=== PATIENT | female | born 1945 ===

== ENCOUNTER 2022-03-03 09:27 | Inpatient (IN) ==
--- NOTE | 2022-03-03 09:43 | Emergency Department Note ---
HPI General Chief complaint: Rib Pain Stated complaint: Rib pain Time Seen by Provider: 03/03/22 09:41 Source: EMS Mode of arrival: EMS Limitations: no limitations History of Present Illness HPI Narrative: Narrative: Patient is a 77-year-old female with a history of CKD, hyperlipidemia, and hypertension who presents to the emergency department due to right-sided rib pain. Patient states that she was swabbing for COVID when she became lightheaded. She states that she then fell and hit her right side. She denies loss of consciousness. She denies hitting her head. She denies headache, nausea, and vomiting at this time. She states that she has had runny nose, sore throat, and cough, and it was for this reason that she was taking COVID test. She states that she was positive for COVID. She denies any other concerns at this time. Related Data Home Medications Medication Instructions Recorded Confirmed coQ10 (ubiquinol) 100 mg capsule 100 mg PO QDAY 01/25/16 03/03/22 magnesium oxide 400 mg PO QDAY 01/25/16 03/03/22 B.animalis-B.bifidum-B.infantis-B.longum 1 tab PO QDAY 02/03/16 03/03/22 10 mg-15 mg tablet,delay rel (Probiotic 4X) multivitamin,gp-dynb-ycumwdvi 1 tab PO BID 02/03/16 03/03/22 (Complete Multivitamin tablet) psyllium seed (sugar) oral powder 1 tbsp PO QDAY PRN Diarrhea 02/03/16 03/03/22 (Metamucil (sugar) oral powder) calcium carbonate 500 mg-vitamin 1 tab PO QDAY 09/09/18 03/03/22 D3 10 mcg (400 unit) chewable tablet (Calcium 500 + D) cyanocobalamin (vitamin B-12) See Rx Instructions PO QDAY 09/09/18 03/03/22 docusate sodium 100 mg capsule 100 mg PO QDAY 09/09/18 03/03/22 hydrochlorothiazide 12.5 mg capsule 12.5 mg PO QDAY 09/09/18 03/03/22 pravastatin 40 mg tablet 20 mg PO QHS 09/09/18 03/03/22 nortriptyline 10 mg capsule 10 mg PO QDAY 09/08/19 03/03/22 Astaxanthin- Vit E Hawiian Bioastin 12 mg PO QDAY 09/07/20 03/03/22 ascorbic acid (vitamin C) 250 mg 500 mg PO QDAY 09/07/20 03/03/22 chewable tablet cholecalciferol (vitamin D3) 25 1,000 unit PO QDAY 09/07/20 03/03/22 mcg (1,000 unit) capsule cranberry extract 425 mg capsule 425 mg PO QDAY 09/07/20 03/03/22 pfqozwda-qfmzijtg-wig C 250 2 tab PO QDAY 09/07/20 03/03/22 mg-herbal no.124 8.875 mg chewable tablet (Airborne (ascorbic acid)) Previous Rx's Medication Instructions Recorded atenolol 50 mg tablet 50 mg PO QHS #90 tabs 03/12/18 amlodipine 2.5 mg tablet 2.5 mg PO QDAY #90 tabs 09/14/21 Allergies Allergy/AdvReac Type Severity Reaction Status Date / Time naproxen [From Aleve] Allergy Severe swelling,redness Verified 03/03/22 09:37 of skin rofecoxib [From Vioxx] Allergy Mild Hives Verified 03/04/22 07:46 alendronate sodium AdvReac Intermediate Muscle Pain Verified 03/04/22 07:46 [From Fosamax] Review of Systems ROS ROS Narrative: Narrative: Constitutional: Denies fever or weakness Eyes: Denies eye pain or vision change ENT ED: Reports throat pain and rhinorrhea; Denies hearing loss Cardiovascular: Reports chest pain; Denies dyspnea on exertion, orthopnea or edema Respiratory: Reports cough; Denies shortness of breath Gastrointestinal: Denies abdominal pain, nausea, vomiting, diarrhea, constipation, hematochezia or melena Musculoskeletal: Denies back pain or myalgia Integumentary: Denies rash or lesions Neurological: Reports other (Lightheadedness); Denies headache, weakness, numbness, confusion, abnormal gait or dizziness Endocrine: Denies fatigue or polyuria Hematological/Lymphatic: Denies easy bleeding or easy bruising [facility] Narrative Patient History Narrative: Narrative: Medical/Surgical/Family History All Active Problems (Updated 03/06/22 @ 05:17 by Davon Prince MD) Fracture of rib (Acute) Pneumothorax (Acute) COVID (Acute) Hypocalcemia (Acute) Pneumothorax, right (Acute) Right rib fracture (Acute) Excessive sweating (Chronic) Hypertensive chronic kidney disease with stage 1 through stage 4 chronic kidney disease, or unspecified chronic kidney disease (Chronic) Impaired fasting glucose (Chronic) Mixed hyperlipidemia (Chronic) Flushing (Chronic) Osteopenia (Chronic) Hx of irritable bowel syndrome (Chronic) CKD (chronic kidney disease) stage 2, GFR 60-89 ml/min (Acute) Analgesic nephropathy (Acute) Medical History (Updated 03/06/22 @ 05:17 by Davon Prince MD) Analgesic nephropathy Improving GFR slowly with time with the abstinence of nonsteroidals and well- controlled blood Excessive sweating Flushing Hx of irritable bowel syndrome Hypertensive chronic kidney disease with stage 1 through stage 4 chronic kidney disease, or unspecified chronic kidney disease Suspect this is prior renal dysfunction from nonsteroidal anti- inflammatories, 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, her GFR is back to normal for her age Impaired fasting glucose Mixed hyperlipidemia Osteopenia Surgical History Hx of hysterectomy Family History Mother Brain cancer Sister Hypertension Cancer Social History Smoking Status: Never smoker Alcohol Intake Frequency: holiday/special occasion only Exam Narrative Narrative: Narrative: General Limitations: no limitations General appearance: Present alert and in no apparent distress; Absent anxious, appears intoxicated or sleepy Head Head: Present atraumatic and normocephalic Eye Eye: Present PERRL and EOMI; Absent scleral icterus or nystagmus ENT ENT: Present mucous membranes moist; Absent nasal congestion Neck Neck: Present full ROM; Absent tenderness Chest Chest: Present normal inspection, symmetric chest wall rise and tenderness (Right sided chest) Respiratory Respiratory: Present normal lung sounds bilaterally; Absent respiratory distress, rales/crackles, wheezes, stridor or accessory muscle use Cardiovascular Cardiovascular: Present regular rate, normal rhythm and normal heart sounds Adbominal Abdominal: Present soft and normal bowel sounds; Absent distention or tenderness Extremities Extremities: Present normal inspection and full ROM; Absent tenderness Back Back: Present normal inspection and full ROM; Absent tenderness Neurological Neurological: Present alert and oriented X3 Psychiatric Psychiatric: Present normal affect and normal mood Skin Skin: Present warm (WNL), dry and normal color Course Vital Signs Vital signs: Vital Signs Temperature 97.4 F 03/03/22 09:34 Pulse Rate 75 03/03/22 09:34 Respiratory Rate 18 03/03/22 09:34 Blood Pressure 151/63 03/03/22 09:34 Pulse Oximetry (%) 96 03/03/22 09:34 Temperature 96.1 F L 03/06/22 03:37 Pulse Rate 56 L 03/06/22 03:37 Respiratory Rate 16 03/06/22 03:37 Blood Pressure 126/61 03/06/22 03:37 Pulse Oximetry (%) 93 03/06/22 03:37 Oxygen Delivery Method 03/06/22 03:37 Oxygen Flow Rate (L/min) 2 03/06/22 03:37 MDM MDM Narrative Medical decision making narrative: Narrative: Patient is a 77-year-old female who presents to the emergency department due to fall and new right-sided rib pain. Patient states that she did test positive for COVID. Given her fall with new right-sided rib pain there is concern for potential rib fractures. CT scan demonstrates right seventh through ninth rib fractures with mild displacement of fracture 7 and 8. It also demonstrates small right pneumothorax. Due to these traumatic findings I spoke to Dr. Ortiz who agreed to consult, but requested hospitalist admission. I spoke to Dr. Blanca who agreed to see and evaluate patient for admission. Lab Data Result diagrams: 03/03/22 10:03 Labs: Lab Results 03/03/22 03/03/22 03/03/22 Range/Units 10:03 10:03 10:05 WBC 9.2 (4.5-11.0) K/mcL RBC 4.22 (3.59-5.38) M/mcL Hgb 13.6 (11.2-15.7) g/dL Hct 39.3 (34.1-44.9) % POC Hct 40.0 (36-48) MCV 93.1 (80.0-100.0) fL MCH 32.2 (26.0-34.0) pg MCHC 34.6 (31.0-36.0) g/dL RDW 12.1 (11.5-14.5) % Plt Count 172 (140-440) K/mcL MPV 10.1 (8.8-12.5) fL Immature Gran % (Auto) 0.5 (0.0-0.5) % Neut % (Auto) 83.6 H (38.0-78.0) % Lymph % (Auto) 6.3 L (15.5-49.0) % [place] % (Auto) 9.3 (1.0-12.0) % Eos % (Auto) 0.1 (0.0-7.0) % Baso % (Auto) 0.2 (0.0-2.0) % Lymph # (Auto) 0.58 L (1.50-4.80) K/mcL [place] # (Auto) 0.86 (0.10-0.90) K/mcL Eos # (Auto) 0.01 (0.00-0.70) K/mcL Baso # (Auto) 0.02 (0.00-0.30) K/mcL Immature Gran # 0.05 (0.00-0.05) K/mcl Absolute Neutrophils 7.70 (1.80-8.00) K/mcL POC Sodium 130 L (133-145) POC Potassium 4.0 (3.3-5.1) POC Chloride 94 L (96-108) POC Total CO2 25.0 (22-30) POC BUN 13 (6-20) POC Creatinine 1.0 (0.6-1.2) POC Glucose 147 H (70-105) POC WB Ioniz Calcium 1.09 L (1.16-1.32) POC Troponin I < 0.02 (0.00-0.08) ED POC Tests ED POC Tests: ALYCE - SARS Antigen Positive EKG Data EKG #1: EKG attestation: Yes I reviewed and interpreted this EKG. EKG results narrative: Normal sinus rhythm with a rate of 67, left axis deviation, MS 179, QRS of 111, QTc 441, T wave inversion in lead III, T wave flattening in aVF, and absence of ST elevation or depression. Discharge Plan Patient/Caregiver Discharge Instructions Pt seen by STAVE CUTTING SUPERVISOR/PA only: No Clinical Impression: Fracture of rib, Pneumothorax Patient Disposition: Xfer As Inpt ([facility]) Discharge Date/Time: 03/03/22 14:51
[2022-03-03 10:06] LABS: POC Calcium, Ionized 1.09 (1.16-1.32)
[2022-03-03 10:32] LABS: Basophils # (Auto) 0.02 K/mcL (0.00-0.30); Basophils % (Auto) 0.2 % (0.0-2.0); Eosinophils # (Auto) 0.01 K/mcL (0.00-0.70); Eosinophils % (Auto) 0.1 % (0.0-7.0); Hematocrit 39.3 % (34.1-44.9); Hemoglobin 13.6 g/dL (11.2-15.7); Lymphocytes # (Auto) 0.58 K/mcL (1.50-4.80); Lymphocytes % (Auto) 6.3 % (15.5-49.0); Mean Cell Volume 93.1 fL (80.0-100.0); Mean Corpuscular HGB Conc 34.6 g/dL (31.0-36.0); Mean Platelet Volume 10.1 fL (8.8-12.5); Monocytes # (Auto) 0.86 K/mcL (0.10-0.90); Monocytes % (Auto) 9.3 % (1.0-12.0); Neutrophils % (Auto) 83.6 % (38.0-78.0); Platelet Count 172 K/mcL (140-440); RBC 4.22 M/mcL (3.59-5.38); Red Cell Distribution Width 12.1 % (11.5-14.5); WBC 9.2 K/mcL (4.5-11.0)
[2022-03-03] MEDS ORDERED: KETOROLAC 60 MG/2 ML VIAL IM ONE (10:47)
--- NOTE | 2022-03-03 12:51 | Cat Scan Report ---
History: Fell with right sided rib fractures TECHNIQUE: The chest was imaged without contrast in axial plane at 2.5 mm intervals. Sagittal, coronal and axial MIPS images were created. The radiation exposure was limited using dose reduction technology. FINDINGS: There are acute fractures posterolaterally in the right seventh, eighth and ninth ribs. There is a few millimeter displacement of the fractures in the seventh and eighth ribs with no displacement of the ninth rib. There is a very tiny pneumothorax with a small crescent of air seen adjacent to the right side at the midthoracic spine. No hemothorax is present. There is pleural thickening adjacent to the fractured ribs. Patient has underlying mild to moderate emphysema and mild pulmonary fibrosis. There are couple small granulomata in both lungs. The heart size is normal. There is focal moderate calcification in the left main coronary artery. 3 cm cyst is present in the lower pole of the left kidney. The spine has a moderate kyphotic curvature. There is ankylosis from T2 through T8. No spinal fracture is present. IMPRESSION: Fractured right seventh through ninth ribs. Tiny right-sided pneumothorax Mild to moderate emphysema Dr. Prince was called with the report Interpreted and Authenticated by: Nick Mccormick 03/03/22
--- NOTE | 2022-03-03 14:18 | Internal Med History&Physical ---
HPI History of Present Illness Patient information: Note initiated : 03/03/22 at 2:11 pm Service Date, if different from initiated Date: [] Patient: Eli Welch a 77 y/o F admitted on for Rib pain. Chief Complaint: [fall with right lateral chest wall pain] Chief complaint: fall with right lateral chest wall pain History of present illness: Ms. Welch is a 77 year old F history of CKD, hyperlipidemia, hypertensions, p resenting with mechanical fall with resultant right lateral chest wall pain. There was no previous history of fall. Patient started to experience coughing and chills for the past 90 so she performed a COVID swab yesterday which was negative and she performed another swab today with equivocal result. She did had a medical for after losing her balance in the bathroom earlier today and she landed on her right lateral chest wall. She is now complaining of 5 out of 10, sharp, constant right lateral chest wall exacerbated with coughing or deep breath. She denies any shortness of breath at the moment. CT of the chest showing right 17/9 rib fracture with tiny right-sided pneumothorax. COVID PCR results pending. Admission request was called for management for the rib fractures and tiny pneumothorax. Constitutional Constitutional: Present chills; Absent excessive sweating, fatigue, fever(s) or weakness EENT Eyes: Absent blurry vision, change in vision, loss of vision or other visual disturbances Ears: Absent decreased hearing or tinnitus Nose, mouth and throat: Absent abnormal hearing, dry mouth, headache(s), nasal congestion or sore throat Cardiovascular Cardiovascular: Absent chest pain, chest pain at rest, edema, irregular heart rhythm or palpatations Respiratory Respiratory: Present cough; Absent dyspnea or wheezing Gastrointestinal Gastrointestinal: Absent abdominal pain, constipation, diarrhea, nausea or vomiting Musculoskeletal Musculoskeletal: Absent back pain, deformity, limited range of motion, muscle cramps, muscle weakness or numbness Additional comments: Right lateral chest wall pain Integumentary Integumentary: Absent lesions, rash or wounds Neurological Neurological: Absent focal weakness, headache(s) or numbness Psychiatric Psychiatric: Absent anxiety, depression or hallucinations PFSH PFSH All Active Problems (Updated 03/03/22 @ 14:17 by Kristian Blanca MD) Hypocalcemia (Acute) Pneumothorax, right (Acute) Right rib fracture (Acute) Excessive sweating (Chronic) Hypertensive chronic kidney disease with stage 1 through stage 4 chronic kidney disease, or unspecified chronic kidney disease (Chronic) Impaired fasting glucose (Chronic) Mixed hyperlipidemia (Chronic) Flushing (Chronic) Osteopenia (Chronic) Hx of irritable bowel syndrome (Chronic) CKD (chronic kidney disease) stage 2, GFR 60-89 ml/min (Acute) Analgesic nephropathy (Acute) Medical History (Updated 03/03/22 @ 14:17 by Kristian Blanca MD) Analgesic nephropathy Improving GFR slowly with time with the abstinence of nonsteroidals and well- controlled blood Excessive sweating Flushing Hx of irritable bowel syndrome Hypertensive chronic kidney disease with stage 1 through stage 4 chronic kidney disease, or unspecified chronic kidney disease Suspect this is prior renal dysfunction from nonsteroidal anti- inflammatories, 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, her GFR is back to normal for her age Impaired fasting glucose Mixed hyperlipidemia Osteopenia Surgical History Hx of hysterectomy Family History Mother Brain cancer Sister Hypertension Cancer Social History (Updated 09/08/19 @ 11:42 by Iam Betancourt MD) smoking status: Never smoker alcohol intake frequency: holiday/special occasion only MEDS/ALLERGIES Home Medications and Allergies Home Medications Medication Instructions Recorded Confirmed Type coQ10 (ubiquinol) 100 mg capsule 100 mg PO QDAY 01/25/16 09/14/21 History magnesium oxide 400 mg PO QDAY 01/25/16 09/14/21 History B.animalis-B.bifidum-B.infantis-B.longum mg PO QDAY 02/03/16 09/14/21 History 10 mg-15 mg tablet,delay rel (Probiotic 4X) multivitamin,nq-fcye-hkqlujix 1 tab PO QDAY 02/03/16 09/14/21 History (Complete Multivitamin tablet) psyllium seed (sugar) oral powder 1 tbsp PO QDAY PRN 02/03/16 09/14/21 History (Metamucil (sugar) oral powder) atenolol 50 mg tablet 50 mg PO QHS #90 tabs 03/12/18 09/14/21 Rx calcium carbonate 500 mg-vitamin 1 tab PO QDAY 09/09/18 09/14/21 History D3 10 mcg (400 unit) chewable tablet (Calcium 500 + D) cyanocobalamin (vitamin B-12) See Rx Instructions PO QDAY 09/09/18 09/14/21 History docusate sodium 100 mg capsule 100 mg PO QDAY 09/09/18 09/14/21 History hydrochlorothiazide 12.5 mg capsule 12.5 mg PO QDAY 09/09/18 09/14/21 History pravastatin 40 mg tablet 20 mg PO QHS 09/09/18 09/14/21 History nortriptyline 10 mg capsule 10 mg PO QDAY 09/08/19 09/14/21 History Astaxanthin- Vit E Hawiian Bioastin 12 mg PO QDAY 09/07/20 09/14/21 History ascorbic acid (vitamin C) 250 mg 500 mg PO QDAY 09/07/20 09/14/21 History chewable tablet cholecalciferol (vitamin D3) 25 1,000 unit PO QDAY 09/07/20 09/14/21 History mcg (1,000 unit) capsule cranberry extract 425 mg capsule 425 mg PO QDAY 09/07/20 09/14/21 History znpnuwls-mgwgbzjs-rkg C 250 2 tab PO QDAY 09/07/20 09/14/21 History mg-herbal no.124 8.875 mg chewable tablet (Airborne (ascorbic acid)) amlodipine 2.5 mg tablet 2.5 mg PO QDAY #90 tabs 09/14/21 09/14/21 Rx Allergies Allergy/AdvReac Type Severity Reaction Status Date / Time naproxen [From Aleve] Allergy Severe swelling,redness Verified 03/03/22 09:37 of skin rofecoxib [From Vioxx] Allergy Intermediate Hives Verified 03/03/22 09:37 alendronate sodium AdvReac Severe Muscle Pain Verified 03/03/22 09:37 [From Fosamax] EXAM Constitutional Vitals: Temp Pulse Resp BP Pulse Ox 36.3 C 63 21 137/76 97 03/03/22 09:34 03/03/22 14:08 03/03/22 14:08 03/03/22 14:01 03/03/22 14:08 General appearance: cooperative and no acute distress Head Head exam: Present atraumatic and normocephalic Eye Eye exam: Present EOMI and PERRL ENT ENT exam: Present mucous membranes moist, normal exam and normal external ear exam Neck Neck exam: Present normal inspection; Absent lymphadenopathy, tenderness or thyromegaly Respiratory Respiratory exam: Present chest wall tenderness; Absent accessory muscle use, respiratory distress or wheezes Cardiovascular Cardiovascular exam: Present normal rate and rhythm; Absent JVD GI/Abdominal GI/Abdominal exam: Present normal bowel sounds and soft; Absent organomegaly or tenderness Extremities Exam Extremities exam: Present full ROM, normal capillary refill and normal inspection; Absent tenderness Neurological Exam Neurological exam: Present alert, CN II-XII intact and oriented X3; Absent motor sensory deficit Psychiatric Psychiatric exam: Present normal affect and normal mood; Absent anxious or depressed Skin Skin exam: Present dry and intact DATA Data Completed and Pending Labs: Labs from last 24 hours 03/03/22 03/03/22 03/03/22 10:05 10:03 10:03 WBC 9.2 RBC 4.22 Hgb 13.6 Hct 39.3 POC Hct 40.0 MCV 93.1 MCH 32.2 MCHC 34.6 RDW 12.1 Plt Count 172 MPV 10.1 Immature Gran % (Auto) 0.5 Neut % (Auto) 83.6 H Lymph % (Auto) 6.3 L [place] % (Auto) 9.3 Eos % (Auto) 0.1 Baso % (Auto) 0.2 Lymph # (Auto) 0.58 L [place] # (Auto) 0.86 Eos # (Auto) 0.01 Baso # (Auto) 0.02 Immature Gran # 0.05 Absolute Neutrophils 7.70 POC Sodium 130 L POC Potassium 4.0 POC Chloride 94 L POC Total CO2 25.0 POC BUN 13 POC Creatinine 1.0 POC Glucose 147 H POC WB Ioniz Calcium 1.09 L POC Troponin I < 0.02 A/P Assessment and plan (1) CKD (chronic kidney disease) stage 2, GFR 60-89 ml/min: Status: Acute (2) Mixed hyperlipidemia: Status: Chronic (3) Hypertensive chronic kidney disease with stage 1 through stage 4 chronic kidney disease, or unspecified chronic kidney disease: Status: Chronic Comment: Suspect this is prior renal dysfunction from nonsteroidal anti-inflammatories, 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 Right 7-9th ribs fracture with associated tiny right pneumothorax: Inpatient med surg General surgeon Dr. Ortiz consulted, recs. appreciated. No current plan for chest tube placement Repeat CXR 2 view tomorrow to trend Tylenol PRN mild pain Oxycodone PRN moderate pain Dilaudid IV PRN severe pain Incentive spirometry while awake Supplemental oxygen therapy Physical therapy evaluation and treatment 2. Hypertension associated with chronic kidney disease II: Avoid nephrotoxic agents Amlodipine Atenolol Hydrochlorothiazide 3. Mixed dyslipidemia: Continue statin therapy 4. Hypocalcemia: Calcium oral replacement GI ppx: not currently indicated DVT ppx: Lovenox Code status: Full Prognosis: guarded Disposition: inpatient med surg; PT Time Spent With Patient Time: Total time spent is greater than 50% in coordination of care (as documented) at patient's floor/unit and/or counseling patient: Total time spent with greater than 50% in coordination of care (as documented) at patient's floor/unit and/or counseling patient:: 50 - 70 minutes
--- NOTE | 2022-03-03 14:25 | General Surgery Consult Note ---
HPI Date of Consult Primary Care Provider: Shira Lee Consult Narrative cc:: CC: PFSH PFSH All Active Problems (Updated 03/03/22 @ 14:17 by Kristian Blanca MD) Hypocalcemia (Acute) Pneumothorax, right (Acute) Right rib fracture (Acute) Excessive sweating (Chronic) Hypertensive chronic kidney disease with stage 1 through stage 4 chronic kidney disease, or unspecified chronic kidney disease (Chronic) Impaired fasting glucose (Chronic) Mixed hyperlipidemia (Chronic) Flushing (Chronic) Osteopenia (Chronic) Hx of irritable bowel syndrome (Chronic) CKD (chronic kidney disease) stage 2, GFR 60-89 ml/min (Acute) Analgesic nephropathy (Acute) Medical History (Updated 03/03/22 @ 14:17 by Kristian Blanca MD) Analgesic nephropathy Improving GFR slowly with time with the abstinence of nonsteroidals and well- controlled blood Excessive sweating Flushing Hx of irritable bowel syndrome Hypertensive chronic kidney disease with stage 1 through stage 4 chronic kidney disease, or unspecified chronic kidney disease Suspect this is prior renal dysfunction from nonsteroidal anti- inflammatories, 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, her GFR is back to normal for her age Impaired fasting glucose Mixed hyperlipidemia Osteopenia Surgical History Hx of hysterectomy Family History Mother Brain cancer Sister Hypertension Cancer Social History (Updated 09/08/19 @ 11:42 by Ima Betancourt MD) smoking status: Never smoker alcohol intake frequency: holiday/special occasion only MEDS/ALLERGIES Home Medications and Allergies Home Medications Medication Instructions Recorded Confirmed Type coQ10 (ubiquinol) 100 mg capsule 100 mg PO QDAY 01/25/16 09/14/21 History magnesium oxide 400 mg PO QDAY 01/25/16 09/14/21 History B.animalis-B.bifidum-B.infantis-B.longum mg PO QDAY 02/03/16 09/14/21 History 10 mg-15 mg tablet,delay rel (Probiotic 4X) multivitamin,vk-nbsq-axonqqzk 1 tab PO QDAY 02/03/16 09/14/21 History (Complete Multivitamin tablet) psyllium seed (sugar) oral powder 1 tbsp PO QDAY PRN 02/03/16 09/14/21 History (Metamucil (sugar) oral powder) atenolol 50 mg tablet 50 mg PO QHS #90 tabs 03/12/18 09/14/21 Rx calcium carbonate 500 mg-vitamin 1 tab PO QDAY 09/09/18 09/14/21 History D3 10 mcg (400 unit) chewable tablet (Calcium 500 + D) cyanocobalamin (vitamin B-12) See Rx Instructions PO QDAY 09/09/18 09/14/21 History docusate sodium 100 mg capsule 100 mg PO QDAY 09/09/18 09/14/21 History hydrochlorothiazide 12.5 mg capsule 12.5 mg PO QDAY 09/09/18 09/14/21 History pravastatin 40 mg tablet 20 mg PO QHS 09/09/18 09/14/21 History nortriptyline 10 mg capsule 10 mg PO QDAY 09/08/19 09/14/21 History Astaxanthin- Vit E Hawiian Bioastin 12 mg PO QDAY 09/07/20 09/14/21 History ascorbic acid (vitamin C) 250 mg 500 mg PO QDAY 09/07/20 09/14/21 History chewable tablet cholecalciferol (vitamin D3) 25 1,000 unit PO QDAY 09/07/20 09/14/21 History mcg (1,000 unit) capsule cranberry extract 425 mg capsule 425 mg PO QDAY 09/07/20 09/14/21 History sfiusvqy-bhsqvjgy-wot C 250 2 tab PO QDAY 09/07/20 09/14/21 History mg-herbal no.124 8.875 mg chewable tablet (Airborne (ascorbic acid)) amlodipine 2.5 mg tablet 2.5 mg PO QDAY #90 tabs 09/14/21 09/14/21 Rx Allergies Allergy/AdvReac Type Severity Reaction Status Date / Time naproxen [From Aleve] Allergy Severe swelling,redness Verified 03/03/22 09:37 of skin rofecoxib [From Vioxx] Allergy Intermediate Hives Verified 03/03/22 09:37 alendronate sodium AdvReac Severe Muscle Pain Verified 03/03/22 09:37 [From Fosamax] Physical Examination Vital Signs Vital signs: Temp Pulse Resp BP Pulse Ox 97.4 F 64 18 147/61 97 03/03/22 09:34 03/03/22 14:22 03/03/22 14:22 03/03/22 14:16 03/03/22 14:22 Results Labs Result diagrams: 03/03/22 10:03 Labs: Abnormal lab results 03/03/22 03/03/22 Range/Units 10:03 10:03 Neut % (Auto) 83.6 H (38.0-78.0) % Lymph % (Auto) 6.3 L (15.5-49.0) % Lymph # (Auto) 0.58 L (1.50-4.80) K/mcL POC Sodium 130 L (133-145) POC Chloride 94 L (96-108) POC Glucose 147 H (70-105) POC WB Ioniz Calcium 1.09 L (1.16-1.32) All other labs normal. A/P Time Spent With Patient Time: Total time spent is greater than 50% in coordination of care (as documented) at patient's floor/unit and/or counseling patient:
[2022-03-03] MEDS ORDERED: IPRATROPIUM/ALBUTEROL 3 ML AMPUL.NEB NEB PRN (15:00)
--- NOTE | 2022-03-03 15:04 | XRay Report ---
HISTORY: Fell, right-sided chest pain There are vertically oriented fractures posterolaterally in the right seventh and eighth ribs. There is mild separation at the fracture sites. No pneumothorax or pleural effusion are present. There is mild interstitial fibrosis. CT scan shows the patient has mild emphysema. There is no pulmonary contusion IMPRESSION: Fractured right seventh and eighth ribs Interpreted and Authenticated by: Nick Mccormick 03/03/22
[2022-03-03] MEDS: oxyCODONE HCL 5 MG TABLET PO PRN ×2 (16:37→20:36)
[2022-03-03] MEDS: ONDANSETRON 4 MG/2 ML VIAL IV PRN (20:37)
[2022-03-03] MEDS: HYDROmorphone 0.5 MG/0.5 ML SYRINGE IV PRN (20:38)
[2022-03-03] MEDS: 0.9 % SODIUM CHLORIDE 10 ML SYRINGE IV SCH (20:38)
[2022-03-03] MEDS ORDERED: traZODone HCL 50 MG TABLET PO PRN (21:00)
[2022-03-03] MEDS: DOCUSATE SODIUM 100 MG CAPSULE PO SCH (21:01)
[2022-03-03] MEDS: SENNOSIDES 1 TABLET PO SCH (23:59)
[2022-03-04] MEDS: ACETAMINOPHEN 325 MG TABLET PO PRN ×2 (01:47→19:24)
[2022-03-04] MEDS: oxyCODONE HCL 5 MG TABLET PO PRN ×4 (01:48→19:22)
[2022-03-04] MEDS: 0.9 % SODIUM CHLORIDE 10 ML SYRINGE IV SCH ×3 (05:38→22:00)
[2022-03-04] MEDS ORDERED: PSYLLIUM HUSK 5.8 GM PACKET PO PRN (07:46)
[2022-03-04] MEDS: ENOXAPARIN 40 MG/0.4 ML SYRINGE SQ SCH (08:03)
[2022-03-04] MEDS: ASCORBIC ACID 500 MG TABLET PO SCH (08:04)
[2022-03-04] MEDS: CALCIUM CARBONATE 500 MG TAB.CHEW CHEWED SCH (08:04)
[2022-03-04] MEDS: CYANOCOBALAMIN (VITAMIN B-12) 500 MCG TABLET PO SCH (08:04)
[2022-03-04] MEDS: amLODIPine 5 MG TABLET PO SCH (08:04)
[2022-03-04] MEDS: DOCUSATE SODIUM 100 MG CAPSULE PO SCH ×2 (08:05→20:38)
[2022-03-04] MEDS: LACTOBACILLUS 1 CAPSULE PO SCH (08:06)
[2022-03-04] MEDS: HYDROCHLOROTHIAZIDE 12.5 MG CAPSULE PO SCH (08:06)
[2022-03-04] MEDS: MAGNESIUM OXIDE 400 MG TABLET PO SCH (08:06)
[2022-03-04] MEDS: CALCIUM W/VIT D3 500 MG TABLET PO SCH (08:07)
[2022-03-04] MEDS: NORTRIPTYLINE 10 MG CAPSULE PO SCH (08:07)
[2022-03-04] MEDS: VITAMIN D3 25 MCG TABLET PO SCH (08:07)
[2022-03-04] MEDS: MULTIVIT,THER IRON,CA,FA & MIN 1 TABLET PO SCH (08:07)
[2022-03-04] MEDS: HYDROmorphone 0.5 MG/0.5 ML SYRINGE IV PRN ×3 (08:08→21:06)
[2022-03-04] MEDS ORDERED: DOCUSATE SODIUM 100 MG CAPSULE PO SCH (09:00)
[2022-03-04] MEDS ORDERED: COQ10 100 MG PO SCH (09:00)
[2022-03-04] MEDS ORDERED: [UNRECOGNIZED DRUG - MIXTURE] PO SCH (09:00)
[2022-03-04] MEDS ORDERED: [UNRECOGNIZED DRUG - REMARK] PO SCH (09:00)
[2022-03-04] MEDS ORDERED: CRANBERRY EXTRACT 425 MG PO SCH (09:00)
--- NOTE | 2022-03-04 09:01 | XRay Report ---
HISTORY: Right-sided rib fracture, follow-up right pneumothorax FINDINGS: There is no pneumothorax or pleural effusion. Fractures are again seen posterolaterally in the right seventh eighth and ninth ribs. Patient has mild emphysema and minor interstitial fibrosis. The heart size is normal. IMPRESSION: No pneumothorax Interpreted and Authenticated by: Nick Mccormick 03/04/22
--- NOTE | 2022-03-04 14:04 | Internal Med Progress Note ---
SUBJECTIVE Subjective Patient information: Note initiated : 03/04/22 at 2:00 pm Service Date, if different from initiated Date: [] Patient: Eli Welch a 77 y/o F admitted on 03/03/22 for Rib pain. Chief Complaint: [] Interval history: Ms. Welch is a 77 year old F history of CKD, hyperlipidemia, hypertensions, presenting with mechanical fall with resultant right lateral chest wall pain. There was no previous history of fall. Patient started to experience coughing and chills for the past 90 so she performed a COVID swab yesterday which was negative and she performed another swab today with equivocal result. She did had a medical for after losing her balance in the bathroom earlier today and she landed on her right lateral chest wall. She is now complaining of 5 out of 10, sharp, constant right lateral chest wall exacerbated with coughing or deep breath. She denies any shortness of breath at the moment. CT of the chest showing right 17/9 rib fracture with tiny right-sided pneumothorax. COVID PCR results pending. Admission request was called for management for the rib fractures and tiny pneumothorax. 03/04: Patient was on 3 L/min of oxygen overnight, currently she is on room air. She tested positive for COVID-pneumonia. Chest x-ray this morning showing resolution of pneumothorax. She stated that when she is at rest, she does not have any right-sided chest pain. When she tried to move, she will have 6 out of 10 sharp constant right-sided chest wall pain. She denies any shortness of breath or wheezing; she is complaining of mild nonproductive cough. She denies any more fever, chills, or diaphoresis. Continue narcotics as needed for pain control for her right seventh and ninth rib fractures. Supplemental oxygen therapy as needed. No COVID-specific treatments because patient is not oxygen dependent at the moment. Pending physical therapy evaluation and treatment for placement planning. Constitutional Vitals: Vital Signs Temp Pulse Resp BP Pulse Ox O2 Del Method O2 Flow Rate 36.6 C 63 14 118/65 91 3 03/04/22 12:00 03/04/22 12:00 03/04/22 12:00 03/04/22 12:00 03/04/22 12:00 03/04/22 12:00 03/04/22 07:19 Period Temp Pulse Resp BP Sys/Khalil Pulse Ox O2 Del Method O2 Flow Rate Last 24 Hr 36.0 C-36.8 C 62-72 14-21 118-147/59-76 89-99 Nasal Cannula- Room Air 3-3 Intake and Output 03/04/22 03/04/22 03/04/22 03:59 11:59 19:59 Intake Total 400 960 Output Total 250 550 Balance -250 400 410 Weight 90.356 kg 90.356 kg Patient Weight 03/05/22 03:59 Weight 90.356 kg Intake & Output: Intake & Output 03/04/22 03/04/22 03/04/22 03:59 11:59 19:59 Intake Total 400 960 Output Total 250 550 Balance -250 400 410 Weight 90.356 kg 90.356 kg Intake: Oral 400 960 Output: Void Amount 250 550 Other: Meal Lunch Percent of Meal Consumed 100% Feeding Ability Independent Urine Appearance Clear Clear Urine Color Bright Yellow Yellow Urine Odor Normal Head Head exam: Present atraumatic and normal inspection Eye Eye exam: Present normal appearance ENT ENT exam: Present mucous membranes moist, normal exam and normal external ear exam Neck Neck exam: Present normal inspection Respiratory Respiratory exam: Present normal respiratory exam and chest wall tenderness Cardiovascular Cardiovascular exam: Present normal rate and rhythm GI/Abdominal GI/Abdominal exam: Present normal bowel sounds Back Exam Back exam: Present normal inspection Neurological Exam Neurological exam: Present alert and oriented X3 Skin Skin exam: Present intact and warm OBJ DATA Labs CBC & Chem 7: 03/03/22 10:03 Labs: Abnormal Lab Results 03/03/22 03/03/22 10:03 10:03 Neut % (Auto) 83.6 H Lymph % (Auto) 6.3 L Lymph # (Auto) 0.58 L POC Sodium 130 L POC Chloride 94 L POC Glucose 147 H POC WB Ioniz Calcium 1.09 L Meds: Medications Acetaminophen (Acetaminophen 325 Mg Tablet) 650 mg PO Q6HP PRN; Protocol PRN Reason: Per Pain Protocol/Fever > 101 Last Admin: 03/04/22 01:47 Dose: 650 mg Amlodipine Besylate (Amlodipine 5 Mg Tablet) 2.5 mg PO DAILY [facility] Last Admin: 03/04/22 08:04 Dose: 2.5 mg Ascorbic Acid (Ascorbic Acid 500 Mg Tablet) 500 mg PO DAILY [facility] Last Admin: 03/04/22 08:04 Dose: 500 mg Atenolol (Atenolol 50 Mg Tablet) 50 mg PO QHS [facility] Calcium Carbonate/Glycine (Calcium Carbonate 500 Mg Tab.Chew) 500 mg CHEWED DAILY [facility] Last Admin: 03/04/22 08:04 Dose: 500 mg Calcium/Vitamin D (Calcium W/Vit D3 500 Mg Tablet) 500 mg PO DAILY [facility] Last Admin: 03/04/22 08:07 Dose: 500 mg Cyanocobalamin (Cyanocobalamin (Vitamin B-12) 500 Mcg Tablet) 1,000 mcg PO DAILY [facility] Last Admin: 03/04/22 08:04 Dose: 1,000 mcg Docusate Sodium (Docusate Sodium 100 Mg Capsule) 100 mg PO BID [facility] Last Admin: 03/04/22 08:05 Dose: 100 mg Enoxaparin Sodium (Enoxaparin 40 Mg/0.4 Ml Syringe) 40 mg SQ DAILY [facility] Last Admin: 03/04/22 08:03 Dose: 40 mg Hydrochlorothiazide (Hydrochlorothiazide 12.5 Mg Capsule) 12.5 mg PO QDAY [facility] Last Admin: 03/04/22 08:06 Dose: 12.5 mg Hydromorphone HCl (Hydromorphone 0.5 Mg/0.5 Ml Syringe) 0.5 mg IV Q2HP PRN; Protocol PRN Reason: Per Pain Protocol Last Admin: 03/04/22 08:08 Dose: 0.5 mg Iron Carb/Multivit/[place]/Folic Acid (Multivit,Ther Iron,Ca,Fa & Min 1 Tablet) 1 tab PO DAILY [facility] Last Admin: 03/04/22 08:07 Dose: 1 tab Lactobacillus Rhamnosus (Lactobacillus 1 Capsule) 1 cap PO QDAY [facility] Last Admin: 03/04/22 08:06 Dose: 1 cap Magnesium Oxide (Magnesium Oxide 400 Mg Tablet) 400 mg PO DAILY [facility] Last Admin: 03/04/22 08:06 Dose: 400 mg Nortriptyline HCl (Nortriptyline 10 Mg Capsule) 10 mg PO QDAY [facility] Last Admin: 03/04/22 08:07 Dose: 10 mg Ondansetron HCl (Ondansetron 4 Mg/2 Ml Vial) 4 mg IV Q6HP PRN PRN Reason: Nausea And Vomiting Last Admin: 03/03/22 20:37 Dose: 4 mg Oxycodone HCl (Oxycodone Hcl 5 Mg Tablet) 5 mg PO Q4HP PRN; Protocol PRN Reason: Per Pain Protocol Last Admin: 03/04/22 12:53 Dose: 5 mg Psyllium Hydrophilic Mucilloid (Psyllium Husk 5.8 Gm Packet) 6 gm PO DAILYP PRN PRN Reason: Diarrhea Senna (Sennosides 1 Tablet) 2 tab PO HS [facility] Last Admin: 03/03/22 23:59 Dose: Not Given Simvastatin (Simvastatin 10 Mg Tablet) 10 mg PO HS [facility] Sodium Chloride (0.9 % Sodium Chloride 10 Ml Syringe) 10 ml IV Q8 [facility] Last Admin: 03/04/22 12:53 Dose: 10 ml Trazodone HCl (Trazodone Hcl 50 Mg Tablet) 25 mg PO HSP PRN PRN Reason: Insomnia Vitamin D (Vitamin D3 25 Mcg Tablet) 25 mcg PO DAILY [facility] Last Admin: 03/04/22 08:07 Dose: 25 mcg A/P Assessment and plan (1) CKD (chronic kidney disease) stage 2, GFR 60-89 ml/min: Status: Acute (2) Mixed hyperlipidemia: Status: Chronic (3) Hypertensive chronic kidney disease with stage 1 through stage 4 chronic kidney disease, or unspecified chronic kidney disease: Status: Chronic Comment: Suspect this is prior renal dysfunction from nonsteroidal anti-inflammatories, 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 Right 7-9th ribs fracture with associated tiny right pneumothorax: Inpatient med surg General surgeon Dr. Ortiz consulted, recs. appreciated. No current plan for chest tube placement Repeat CXR 2 view showing resolution of the pneumothorax. Tylenol PRN mild pain Oxycodone PRN moderate pain Dilaudid IV PRN severe pain Incentive spirometry while awake Supplemental oxygen therapy Physical therapy evaluation and treatment 2. Hypertension associated with chronic kidney disease II: Currently normotensive Avoid nephrotoxic agents Amlodipine Atenolol Hydrochlorothiazide 3. Mixed dyslipidemia: Continue statin therapy 4. Hypocalcemia: Calcium oral replacement GI ppx: not currently indicated DVT ppx: Lovenox Code status: Full Prognosis: Stable Disposition: inpatient med surg; PT Time Spent With Patient Time: Total time spent is greater than 50% in coordination of care (as documented) at patient's floor/unit and/or counseling patient: Total time spent with greater than 50% in coordination of care (as documented) at patient's floor/unit and/or counseling patient:: 25 - 35 minutes QUALITY VTE Deep Vein Thrombosis/Pulmonary Embolism Present on Admission: No
--- NOTE | 2022-03-04 14:05 | Internal Med Progress Note ---
SUBJECTIVE Subjective Patient information: Note initiated : 03/04/22 at 2:05 pm Service Date, if different from initiated Date: [] Patient: Eli Welch a 77 y/o F admitted on 03/03/22 for Rib pain. Chief Complaint: [] Interval history: Ms. Welch is a 77 year old F history of CKD, hyperlipidemia, hypertensions, presenting with mechanical fall with resultant right lateral chest wall pain. There was no previous history of fall. Patient started to experience coughing and chills for the past 90 so she performed a COVID swab yesterday which was negative and she performed another swab today with equivocal result. She did had a medical for after losing her balance in the bathroom earlier today and she landed on her right lateral chest wall. She is now complaining of 5 out of 10, sharp, constant right lateral chest wall exacerbated with coughing or deep breath. She denies any shortness of breath at the moment. CT of the chest showing right 17/9 rib fracture with tiny right-sided pneumothorax. COVID PCR results pending. Admission request was called for management for the rib fractures and tiny pneumothorax. 03/04: Patient was on 3 L/min of oxygen overnight, currently she is on room air. She tested positive for COVID-pneumonia. Chest x-ray this morning showing resolution of pneumothorax. She stated that when she is at rest, she does not have any right-sided chest pain. When she tried to move, she will have 6 out of 10 sharp constant right-sided chest wall pain. She denies any shortness of breath or wheezing; she is complaining of mild nonproductive cough. She denies any more fever, chills, or diaphoresis. Continue narcotics as needed for pain control for her right seventh and ninth rib fractures. Supplemental oxygen therapy as needed. No COVID-specific treatments because patient is not oxygen dependent at the moment. Pending physical therapy evaluation and treatment for placement planning. Constitutional Vitals: Vital Signs Temp Pulse Resp BP Pulse Ox O2 Del Method O2 Flow Rate 36.6 C 63 14 118/65 91 3 03/04/22 12:00 03/04/22 12:00 03/04/22 12:00 03/04/22 12:00 03/04/22 12:00 03/04/22 12:00 03/04/22 07:19 Period Temp Pulse Resp BP Sys/Khalil Pulse Ox O2 Del Method O2 Flow Rate Last 24 Hr 36.0 C-36.8 C 62-72 14-21 118-147/59-76 89-99 Nasal Cannula- Room Air 3-3 Intake and Output 03/04/22 03/04/22 03/04/22 03:59 11:59 19:59 Intake Total 400 960 Output Total 250 550 Balance -250 400 410 Weight 90.356 kg 90.356 kg Patient Weight 03/05/22 03:59 Weight 90.356 kg Intake & Output: Intake & Output 03/04/22 03/04/22 03/04/22 03:59 11:59 19:59 Intake Total 400 960 Output Total 250 550 Balance -250 400 410 Weight 90.356 kg 90.356 kg Intake: Oral 400 960 Output: Void Amount 250 550 Other: Meal Lunch Percent of Meal Consumed 100% Feeding Ability Independent Urine Appearance Clear Clear Urine Color Bright Yellow Yellow Urine Odor Normal Head Head exam: Present atraumatic and normal inspection Eye Eye exam: Present normal appearance ENT ENT exam: Present mucous membranes moist, normal exam and normal external ear exam Neck Neck exam: Present normal inspection Respiratory Respiratory exam: Present normal respiratory exam and chest wall tenderness Cardiovascular Cardiovascular exam: Present normal rate and rhythm GI/Abdominal GI/Abdominal exam: Present normal bowel sounds Back Exam Back exam: Present normal inspection Neurological Exam Neurological exam: Present alert and oriented X3 Skin Skin exam: Present intact and warm OBJ DATA Labs CBC & Chem 7: 03/03/22 10:03 Labs: Abnormal Lab Results 03/03/22 03/03/22 10:03 10:03 Neut % (Auto) 83.6 H Lymph % (Auto) 6.3 L Lymph # (Auto) 0.58 L POC Sodium 130 L POC Chloride 94 L POC Glucose 147 H POC WB Ioniz Calcium 1.09 L Meds: Medications Acetaminophen (Acetaminophen 325 Mg Tablet) 650 mg PO Q6HP PRN; Protocol PRN Reason: Per Pain Protocol/Fever > 101 Last Admin: 03/04/22 01:47 Dose: 650 mg Amlodipine Besylate (Amlodipine 5 Mg Tablet) 2.5 mg PO DAILY [facility] Last Admin: 03/04/22 08:04 Dose: 2.5 mg Ascorbic Acid (Ascorbic Acid 500 Mg Tablet) 500 mg PO DAILY [facility] Last Admin: 03/04/22 08:04 Dose: 500 mg Atenolol (Atenolol 50 Mg Tablet) 50 mg PO QHS [facility] Calcium Carbonate/Glycine (Calcium Carbonate 500 Mg Tab.Chew) 500 mg CHEWED DAILY [facility] Last Admin: 03/04/22 08:04 Dose: 500 mg Calcium/Vitamin D (Calcium W/Vit D3 500 Mg Tablet) 500 mg PO DAILY [facility] Last Admin: 03/04/22 08:07 Dose: 500 mg Cyanocobalamin (Cyanocobalamin (Vitamin B-12) 500 Mcg Tablet) 1,000 mcg PO DAILY [facility] Last Admin: 03/04/22 08:04 Dose: 1,000 mcg Docusate Sodium (Docusate Sodium 100 Mg Capsule) 100 mg PO BID [facility] Last Admin: 03/04/22 08:05 Dose: 100 mg Enoxaparin Sodium (Enoxaparin 40 Mg/0.4 Ml Syringe) 40 mg SQ DAILY [facility] Last Admin: 03/04/22 08:03 Dose: 40 mg Hydrochlorothiazide (Hydrochlorothiazide 12.5 Mg Capsule) 12.5 mg PO QDAY [facility] Last Admin: 03/04/22 08:06 Dose: 12.5 mg Hydromorphone HCl (Hydromorphone 0.5 Mg/0.5 Ml Syringe) 0.5 mg IV Q2HP PRN; Protocol PRN Reason: Per Pain Protocol Last Admin: 03/04/22 08:08 Dose: 0.5 mg Iron Carb/Multivit/[place]/Folic Acid (Multivit,Ther Iron,Ca,Fa & Min 1 Tablet) 1 tab PO DAILY [facility] Last Admin: 03/04/22 08:07 Dose: 1 tab Lactobacillus Rhamnosus (Lactobacillus 1 Capsule) 1 cap PO QDAY [facility] Last Admin: 03/04/22 08:06 Dose: 1 cap Magnesium Oxide (Magnesium Oxide 400 Mg Tablet) 400 mg PO DAILY [facility] Last Admin: 03/04/22 08:06 Dose: 400 mg Nortriptyline HCl (Nortriptyline 10 Mg Capsule) 10 mg PO QDAY [facility] Last Admin: 03/04/22 08:07 Dose: 10 mg Ondansetron HCl (Ondansetron 4 Mg/2 Ml Vial) 4 mg IV Q6HP PRN PRN Reason: Nausea And Vomiting Last Admin: 03/03/22 20:37 Dose: 4 mg Oxycodone HCl (Oxycodone Hcl 5 Mg Tablet) 5 mg PO Q4HP PRN; Protocol PRN Reason: Per Pain Protocol Last Admin: 03/04/22 12:53 Dose: 5 mg Psyllium Hydrophilic Mucilloid (Psyllium Husk 5.8 Gm Packet) 6 gm PO DAILYP PRN PRN Reason: Diarrhea Senna (Sennosides 1 Tablet) 2 tab PO HS [facility] Last Admin: 03/03/22 23:59 Dose: Not Given Simvastatin (Simvastatin 10 Mg Tablet) 10 mg PO HS [facility] Sodium Chloride (0.9 % Sodium Chloride 10 Ml Syringe) 10 ml IV Q8 [facility] Last Admin: 03/04/22 12:53 Dose: 10 ml Trazodone HCl (Trazodone Hcl 50 Mg Tablet) 25 mg PO HSP PRN PRN Reason: Insomnia Vitamin D (Vitamin D3 25 Mcg Tablet) 25 mcg PO DAILY [facility] Last Admin: 03/04/22 08:07 Dose: 25 mcg A/P Assessment and plan (1) CKD (chronic kidney disease) stage 2, GFR 60-89 ml/min: Status: Acute (2) Mixed hyperlipidemia: Status: Chronic (3) Hypertensive chronic kidney disease with stage 1 through stage 4 chronic kidney disease, or unspecified chronic kidney disease: Status: Chronic Comment: Suspect this is prior renal dysfunction from nonsteroidal anti-inflammatories, 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 Right 7-9th ribs fracture with associated tiny right pneumothorax: Inpatient med surg General surgeon Dr. Ortiz consulted, recs. appreciated. No current plan for chest tube placement Repeat CXR 2 view showing resolution of the pneumothorax. Tylenol PRN mild pain Oxycodone PRN moderate pain Dilaudid IV PRN severe pain Incentive spirometry while awake Supplemental oxygen therapy Physical therapy evaluation and treatment 2. Hypertension associated with chronic kidney disease II: Currently normotensive Avoid nephrotoxic agents Amlodipine Atenolol Hydrochlorothiazide 3. Mixed dyslipidemia: Continue statin therapy 4. Hypocalcemia: Calcium oral replacement GI ppx: not currently indicated DVT ppx: Lovenox Code status: DNR Prognosis: Stable Disposition: inpatient med surg; PT Time Spent With Patient Time: Total time spent is greater than 50% in coordination of care (as documented) at patient's floor/unit and/or counseling patient: Total time spent with greater than 50% in coordination of care (as documented) at patient's floor/unit and/or counseling patient:: 25 - 35 minutes QUALITY VTE Deep Vein Thrombosis/Pulmonary Embolism Present on Admission: No
[2022-03-04] MEDS: ONDANSETRON 4 MG/2 ML VIAL IV PRN ×2 (19:22→21:00)
[2022-03-04] MEDS: SIMVASTATIN 10 MG TABLET PO SCH (20:37)
[2022-03-04] MEDS: ATENOLOL 50 MG TABLET PO SCH (20:37)
[2022-03-04] MEDS: SENNOSIDES 1 TABLET PO SCH (20:37)
[2022-03-05] MEDS: ACETAMINOPHEN 325 MG TABLET PO PRN (00:55)
[2022-03-05] MEDS: oxyCODONE HCL 5 MG TABLET PO PRN ×5 (00:56→23:37)
[2022-03-05] MEDS: 0.9 % SODIUM CHLORIDE 10 ML SYRINGE IV SCH ×3 (04:21→21:13)
[2022-03-05] MEDS: LACTOBACILLUS 1 CAPSULE PO SCH (08:18)
[2022-03-05] MEDS: HYDROCHLOROTHIAZIDE 12.5 MG CAPSULE PO SCH (08:19)
[2022-03-05] MEDS: ASCORBIC ACID 500 MG TABLET PO SCH (08:19)
[2022-03-05] MEDS: CALCIUM CARBONATE 500 MG TAB.CHEW CHEWED SCH (08:19)
[2022-03-05] MEDS: MAGNESIUM OXIDE 400 MG TABLET PO SCH (08:20)
[2022-03-05] MEDS: VITAMIN D3 25 MCG TABLET PO SCH (08:20)
[2022-03-05] MEDS: CYANOCOBALAMIN (VITAMIN B-12) 500 MCG TABLET PO SCH (08:20)
[2022-03-05] MEDS: NORTRIPTYLINE 10 MG CAPSULE PO SCH (08:20)
[2022-03-05] MEDS: DOCUSATE SODIUM 100 MG CAPSULE PO SCH ×2 (08:20→21:13)
[2022-03-05] MEDS: CALCIUM W/VIT D3 500 MG TABLET PO SCH (08:21)
[2022-03-05] MEDS: amLODIPine 5 MG TABLET PO SCH (08:21)
[2022-03-05] MEDS: MULTIVIT,THER IRON,CA,FA & MIN 1 TABLET PO SCH (08:21)
[2022-03-05] MEDS: HYDROmorphone 0.5 MG/0.5 ML SYRINGE IV PRN ×3 (08:22→21:11)
[2022-03-05] MEDS: ENOXAPARIN 40 MG/0.4 ML SYRINGE SQ SCH (08:22)
--- NOTE | 2022-03-05 12:40 | General Surgery Consult Note ---
HPI Date of Consult Consult Date: 03/03/22 Primary Care Provider: Shira Lee Consult Narrative Reason for consult: Rib fracture right small pneumothorax History of present illness: 77-year-old female who was admitted status post an acute fall with small right- sided pneumothorax and 3 rib fractures. The pneumothorax is less than 5%. The patient's main problem is poor inspiration due to pain. She does not have any atelectasis and her ventilation is stable. Based on these clinical findings the patient does not need any surgical management. She can be treated with pulmonary toilet, supplemental oxygen as needed and follow-up chest x-ray tomorrow. If her pneumothorax should increase I can be reconsulted and will reevaluate whether or not she needs to have tube thoracostomy. It is probable that she will not need to have any surgical intervention. cc:: CC: rKistian Blanca MD [facility] PFSH All Active Problems (Updated 03/03/22 @ 18:09 by Kristian Blanca MD) COVID (Acute) Hypocalcemia (Acute) Pneumothorax, right (Acute) Right rib fracture (Acute) Excessive sweating (Chronic) Hypertensive chronic kidney disease with stage 1 through stage 4 chronic kidney disease, or unspecified chronic kidney disease (Chronic) Impaired fasting glucose (Chronic) Mixed hyperlipidemia (Chronic) Flushing (Chronic) Osteopenia (Chronic) Hx of irritable bowel syndrome (Chronic) CKD (chronic kidney disease) stage 2, GFR 60-89 ml/min (Acute) Analgesic nephropathy (Acute) Medical History (Updated 03/03/22 @ 18:09 by Kristian Blanca MD) Analgesic nephropathy Improving GFR slowly with time with the abstinence of nonsteroidals and well- controlled blood Excessive sweating Flushing Hx of irritable bowel syndrome Hypertensive chronic kidney disease with stage 1 through stage 4 chronic kidney disease, or unspecified chronic kidney disease Suspect this is prior renal dysfunction from nonsteroidal anti-inflam matories, 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, her GFR is back to normal for her age Impaired fasting glucose Mixed hyperlipidemia Osteopenia Surgical History Hx of hysterectomy Family History Mother Brain cancer Sister Hypertension Cancer Social History (Updated 09/08/19 @ 11:42 by Iam Betancourt MD) smoking status: Former smoker alcohol intake frequency: holiday/special occasion only MEDS/ALLERGIES Home Medications and Allergies Home Medications Medication Instructions Recorded Confirmed Type coQ10 (ubiquinol) 100 mg capsule 100 mg PO QDAY 01/25/16 03/03/22 History magnesium oxide 400 mg PO QDAY 01/25/16 03/03/22 History B.animalis-B.bifidum-B.infantis-B.longum 1 tab PO QDAY 02/03/16 03/03/22 History 10 mg-15 mg tablet,delay rel (Probiotic 4X) multivitamin,kw-msmf-vdtfarht 1 tab PO BID 02/03/16 03/03/22 History (Complete Multivitamin tablet) psyllium seed (sugar) oral powder 1 tbsp PO QDAY PRN Diarrhea 02/03/16 03/03/22 History (Metamucil (sugar) oral powder) atenolol 50 mg tablet 50 mg PO QHS #90 tabs 03/12/18 03/03/22 Rx calcium carbonate 500 mg-vitamin 1 tab PO QDAY 09/09/18 03/03/22 History D3 10 mcg (400 unit) chewable tablet (Calcium 500 + D) cyanocobalamin (vitamin B-12) See Rx Instructions PO QDAY 09/09/18 03/03/22 History docusate sodium 100 mg capsule 100 mg PO QDAY 09/09/18 03/03/22 History hydrochlorothiazide 12.5 mg capsule 12.5 mg PO QDAY 09/09/18 03/03/22 History pravastatin 40 mg tablet 20 mg PO QHS 09/09/18 03/03/22 History nortriptyline 10 mg capsule 10 mg PO QDAY 09/08/19 03/03/22 History Astaxanthin- Vit E [place] Bioastin 12 mg PO QDAY 09/07/20 03/03/22 History ascorbic acid (vitamin C) 250 mg 500 mg PO QDAY 09/07/20 03/03/22 History chewable tablet cholecalciferol (vitamin D3) 25 1,000 unit PO QDAY 09/07/20 03/03/22 History mcg (1,000 unit) capsule cranberry extract 425 mg capsule 425 mg PO QDAY 09/07/20 03/03/22 History mvxdhhhy-pbnbcfam-cex C 250 2 tab PO QDAY 09/07/20 03/03/22 History mg-herbal no.124 8.875 mg chewable tablet (Airborne (ascorbic acid)) amlodipine 2.5 mg tablet 2.5 mg PO QDAY #90 tabs 09/14/21 03/03/22 Rx Allergies Allergy/AdvReac Type Severity Reaction Status Date / Time naproxen [From Aleve] Allergy Severe swelling,redness Verified 03/03/22 09:37 of skin rofecoxib [From Vioxx] Allergy Mild Hives Verified 03/04/22 07:46 alendronate sodium AdvReac Intermediate Muscle Pain Verified 03/04/22 07:46 [From Fosamax] Physical Examination Vital Signs Vital signs: Temp Pulse Resp BP Pulse Ox O2 Del Method O2 Flow Rate 96.8 F L 58 L 16 130/64 90 2 03/05/22 12:00 03/05/22 12:00 03/05/22 12:00 03/05/22 12:00 03/05/22 12:00 03/05/22 12:00 03/05/22 02:00 Results Labs Result diagrams: 03/03/22 10:03 Labs: All other labs normal. A/P Assessment and plan (1) Pneumothorax, right: Status: Acute (2) Right rib fracture: Status: Acute Plan Patient does not need surgical intervention but I will be available if her condition should deteriorate. Time Spent With Patient Time: Total time spent is greater than 50% in coordination of care (as documented) at patient's floor/unit and/or counseling patient:
--- NOTE | 2022-03-05 13:31 | Internal Med Progress Note ---
SUBJECTIVE Subjective Patient information: Note initiated : 03/05/22 at 1:25 pm Service Date, if different from initiated Date: [] Patient: Eli Welch a 77 y/o F admitted on 03/03/22 for Rib pain. Chief Complaint: [] Interval history: Ms. Welch is a 77 year old F history of CKD, hyperlipidemia, hypertensions, presenting with mechanical fall with resultant right lateral chest wall pain. There was no previous history of fall. Patient started to experience coughing and chills for the past 90 so she performed a COVID swab yesterday which was negative and she performed another swab today with equivocal result. She did had a medical for after losing her balance in the bathroom earlier today and she landed on her right lateral chest wall. She is now complaining of 5 out of 10, sharp, constant right lateral chest wall exacerbated with coughing or deep breath. She denies any shortness of breath at the moment. CT of the chest showing right 17/9 rib fracture with tiny right-sided pneumothorax. COVID PCR results pending. Admission request was called for management for the rib fractures and tiny pneumothorax. 03/04: Patient was on 3 L/min of oxygen overnight, currently she is on room air. She tested positive for COVID-pneumonia. Chest x-ray this morning showing resolution of pneumothorax. She stated that when she is at rest, she does not have any right-sided chest pain. When she tried to move, she will have 6 out of 10 sharp constant right-sided chest wall pain. She denies any shortness of breath or wheezing; she is complaining of mild nonproductive cough. She denies any more fever, chills, or diaphoresis. Continue narcotics as needed for pain control for her right seventh and ninth rib fractures. Supplemental oxygen therapy as needed. No COVID-specific treatments because patient is not oxygen dependent at the moment. Pending physical therapy evaluation and treatment for placement planning. 03/05: Patient was on 2 L/min of oxygen at night while sleeping and right now is on room air. Suspect sleep apnea. Otherwise there was no other major overnight events. Patient is currently complaining of 7 out of 10 sharp right lateral chest wall pain. She denies any shortness of breath at the moment. She denies any cough or sputum productions. She denies any subjective fever, chills, or diaphoresis. Continue narcotics as needed for pain control for her right seventh and ninth rib fractures. Supplemental oxygen therapy as needed. Recommend outpatient sleep study to look for obstructive sleep apnea. No COVID-specific treatments because patient is not oxygen dependent at the moment. Pending physical therapy evaluation and treatment for placement planning. Tentative discharge date: Sunday03/07/22. Constitutional Vitals: Vital Signs Temp Pulse Resp BP Pulse Ox O2 Del Method O2 Flow Rate 36.0 C L 58 L 16 130/64 90 2 03/05/22 12:00 03/05/22 12:00 03/05/22 12:00 03/05/22 12:00 03/05/22 12:00 03/05/22 12:00 03/05/22 02:00 Period Temp Pulse Resp BP Sys/Khalil Pulse Ox O2 Del Method O2 Flow Rate Last 24 Hr 35.7 C-36.9 C 53-74 14-20 120-164/55-83 90-100 Nasal Cannula- Room Air 2-3 Intake and Output 03/05/22 03/05/22 03/05/22 03:59 11:59 19:59 Intake Total 800 480 Output Total 1100 500 800 Balance -1100 300 -320 Intake & Output: Intake & Output 03/05/22 03/05/22 03/05/22 03:59 11:59 19:59 Intake Total 800 480 Output Total 1100 500 800 Balance -1100 300 -320 Intake: Oral 800 480 Output: Void Amount 1100 500 800 Other: Meal Breakfast Percent of Meal Consumed 100% Feeding Ability Independent Urine Appearance Clear Clear Clear Urine Color Yellow Yellow Yellow Urine Odor Normal Head Head exam: Present atraumatic and normal inspection Eye Eye exam: Present normal appearance ENT ENT exam: Present mucous membranes moist, normal exam and normal external ear exam Neck Neck exam: Present normal inspection Respiratory Respiratory exam: Present chest wall tenderness and decreased breath sounds Cardiovascular Cardiovascular exam: Present normal rate and rhythm GI/Abdominal GI/Abdominal exam: Present normal bowel sounds Back Exam Back exam: Present normal inspection Neurological Exam Neurological exam: Present alert and oriented X3 Skin Skin exam: Present intact and warm OBJ DATA Labs CBC & Chem 7: 03/03/22 10:03 Labs: Abnormal Lab Results 03/03/22 03/03/22 10:03 10:03 Neut % (Auto) 83.6 H Lymph % (Auto) 6.3 L Lymph # (Auto) 0.58 L POC Sodium 130 L POC Chloride 94 L POC Glucose 147 H POC WB Ioniz Calcium 1.09 L Meds: Medications Acetaminophen (Acetaminophen 325 Mg Tablet) 650 mg PO Q6HP PRN; Protocol PRN Reason: Per Pain Protocol/Fever > 101 Last Admin: 03/05/22 00:55 Dose: 650 mg Amlodipine Besylate (Amlodipine 5 Mg Tablet) 2.5 mg PO DAILY [facility] Last Admin: 03/05/22 08:21 Dose: 2.5 mg Ascorbic Acid (Ascorbic Acid 500 Mg Tablet) 500 mg PO DAILY [facility] Last Admin: 03/05/22 08:19 Dose: 500 mg Atenolol (Atenolol 50 Mg Tablet) 50 mg PO QHS [facility] Last Admin: 03/04/22 20:37 Dose: 50 mg Calcium Carbonate/Glycine (Calcium Carbonate 500 Mg Tab.Chew) 500 mg CHEWED DAILY [facility] Last Admin: 03/05/22 08:19 Dose: 500 mg Calcium/Vitamin D (Calcium W/Vit D3 500 Mg Tablet) 500 mg PO DAILY [facility] Last Admin: 03/05/22 08:21 Dose: 500 mg Cyanocobalamin (Cyanocobalamin (Vitamin B-12) 500 Mcg Tablet) 1,000 mcg PO DAILY [facility] Last Admin: 03/05/22 08:20 Dose: 1,000 mcg Docusate Sodium (Docusate Sodium 100 Mg Capsule) 100 mg PO BID [facility] Last Admin: 03/05/22 08:20 Dose: 100 mg Enoxaparin Sodium (Enoxaparin 40 Mg/0.4 Ml Syringe) 40 mg SQ DAILY [facility] Last Admin: 03/05/22 08:22 Dose: 40 mg Hydrochlorothiazide (Hydrochlorothiazide 12.5 Mg Capsule) 12.5 mg PO QDAY [facility] Last Admin: 03/05/22 08:19 Dose: 12.5 mg Hydromorphone HCl (Hydromorphone 0.5 Mg/0.5 Ml Syringe) 0.5 mg IV Q2HP PRN; Protocol PRN Reason: Per Pain Protocol Last Admin: 03/05/22 08:22 Dose: 0.5 mg Iron Carb/Multivit/[facility]/Folic Acid (Multivit,Ther Iron,Ca,Fa & Min 1 Tablet) 1 tab PO DAILY [facility] Last Admin: 03/05/22 08:21 Dose: 1 tab Lactobacillus Rhamnosus (Lactobacillus 1 Capsule) 1 cap PO QDAY [facility] Last Admin: 03/05/22 08:18 Dose: 1 cap Magnesium Oxide (Magnesium Oxide 400 Mg Tablet) 400 mg PO DAILY [facility] Last Admin: 03/05/22 08:20 Dose: 400 mg Nortriptyline HCl (Nortriptyline 10 Mg Capsule) 10 mg PO QDAY [facility] Last Admin: 03/05/22 08:20 Dose: 10 mg Ondansetron HCl (Ondansetron 4 Mg/2 Ml Vial) 4 mg IV Q6HP PRN PRN Reason: Nausea And Vomiting Last Admin: 03/04/22 21:00 Dose: 4 mg Oxycodone HCl (Oxycodone Hcl 5 Mg Tablet) 5 mg PO Q4HP PRN; Protocol PRN Reason: Per Pain Protocol Last Admin: 03/05/22 12:03 Dose: 5 mg Psyllium Hydrophilic Mucilloid (Psyllium Husk 5.8 Gm Packet) 6 gm PO DAILYP PRN PRN Reason: Diarrhea Last Admin: 03/04/22 20:39 Dose: 6 gm Senna (Sennosides 1 Tablet) 2 tab PO HS [facility] Last Admin: 03/04/22 20:37 Dose: Not Given Simvastatin (Simvastatin 10 Mg Tablet) 10 mg PO HS [facility] Last Admin: 03/04/22 20:37 Dose: 10 mg Sodium Chloride (0.9 % Sodium Chloride 10 Ml Syringe) 10 ml IV Q8 [facility] Last Admin: 03/05/22 12:12 Dose: 10 ml Trazodone HCl (Trazodone Hcl 50 Mg Tablet) 25 mg PO HSP PRN PRN Reason: Insomnia Vitamin D (Vitamin D3 25 Mcg Tablet) 25 mcg PO DAILY [facility] Last Admin: 03/05/22 08:20 Dose: 25 mcg A/P Assessment and plan (1) CKD (chronic kidney disease) stage 2, GFR 60-89 ml/min: Status: Acute (2) Mixed hyperlipidemia: Status: Chronic (3) Hypertensive chronic kidney disease with stage 1 through stage 4 chronic kidney disease, or unspecified chronic kidney disease: Status: Chronic Comment: Suspect this is prior renal dysfunction from nonsteroidal anti-inflammatories, 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 Right 7-9th ribs fracture with associated tiny right pneumothorax: Inpatient med surg General surgeon Dr. Ortiz consulted, recs. appreciated. No current plan for chest tube placement Repeat CXR 2 view showing resolution of the pneumothorax. Tylenol PRN mild pain Oxycodone PRN moderate pain Dilaudid IV PRN severe pain Incentive spirometry while awake Supplemental oxygen therapy Physical therapy evaluation and treatment Recommend outpatient sleep study to look for obstructive sleep apnea 2. Hypertension associated with chronic kidney disease II: Currently normotensive Avoid nephrotoxic agents Amlodipine Atenolol Hydrochlorothiazide 3. Mixed dyslipidemia: Continue statin therapy 4. Hypocalcemia: Calcium oral replacement GI ppx: not currently indicated DVT ppx: Lovenox Code status: DNR Prognosis: Stable Disposition: inpatient med surg; PT, tentative discharge date: Sunday03/07/22 Time Spent With Patient Time: Total time spent is greater than 50% in coordination of care (as documented) at patient's floor/unit and/or counseling patient: Total time spent with greater than 50% in coordination of care (as documented) at patient's floor/unit and/or counseling patient:: 25 - 35 minutes QUALITY VTE Deep Vein Thrombosis/Pulmonary Embolism Present on Admission: No
[2022-03-05] MEDS: SIMVASTATIN 10 MG TABLET PO SCH (21:12)
[2022-03-05] MEDS: SENNOSIDES 1 TABLET PO SCH (21:12)
[2022-03-05] MEDS: ATENOLOL 50 MG TABLET PO SCH (21:13)
[2022-03-06] MEDS: oxyCODONE HCL 5 MG TABLET PO PRN ×2 (03:39→20:35)
[2022-03-06] MEDS: 0.9 % SODIUM CHLORIDE 10 ML SYRINGE IV SCH ×4 (03:40→20:36)
--- NOTE | 2022-03-06 07:29 | EKG ---
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
[2022-03-06] MEDS: amLODIPine 5 MG TABLET PO SCH (08:35)
[2022-03-06] MEDS: LACTOBACILLUS 1 CAPSULE PO SCH (08:35)
[2022-03-06] MEDS: ENOXAPARIN 40 MG/0.4 ML SYRINGE SQ SCH (08:35)
[2022-03-06] MEDS: CALCIUM CARBONATE 500 MG TAB.CHEW CHEWED SCH (08:36)
[2022-03-06] MEDS: CALCIUM W/VIT D3 500 MG TABLET PO SCH (08:36)
[2022-03-06] MEDS: DOCUSATE SODIUM 100 MG CAPSULE PO SCH ×2 (08:36→20:35)
[2022-03-06] MEDS: VITAMIN D3 25 MCG TABLET PO SCH (08:36)
[2022-03-06] MEDS: MAGNESIUM OXIDE 400 MG TABLET PO SCH (08:36)
[2022-03-06] MEDS: MULTIVIT,THER IRON,CA,FA & MIN 1 TABLET PO SCH (08:36)
[2022-03-06] MEDS: ASCORBIC ACID 500 MG TABLET PO SCH (08:36)
[2022-03-06] MEDS: HYDROmorphone 0.5 MG/0.5 ML SYRINGE IV PRN ×3 (08:37→17:07)
[2022-03-06] MEDS: NORTRIPTYLINE 10 MG CAPSULE PO SCH (08:37)
[2022-03-06] MEDS: CYANOCOBALAMIN (VITAMIN B-12) 500 MCG TABLET PO SCH (08:37)
[2022-03-06] MEDS: HYDROCHLOROTHIAZIDE 12.5 MG CAPSULE PO SCH (08:37)
--- NOTE | 2022-03-06 14:36 | Internal Med Progress Note ---
SUBJECTIVE Subjective Patient information: Note initiated : 03/06/22 at 2:32 pm Service Date, if different from initiated Date: [] Patient: Eli Welch a 77 y/o F admitted on 03/03/22 for Rib pain. Chief Complaint: [] Interval history: Ms. Welch is a 77 year old F history of CKD, hyperlipidemia, hypertensions, presenting with mechanical fall with resultant right lateral chest wall pain. There was no previous history of fall. Patient started to experience coughing and chills for the past 90 so she performed a COVID swab yesterday which was negative and she performed another swab today with equivocal result. She did had a medical for after losing her balance in the bathroom earlier today and she landed on her right lateral chest wall. She is now complaining of 5 out of 10, sharp, constant right lateral chest wall exacerbated with coughing or deep breath. She denies any shortness of breath at the moment. CT of the chest showing right 17/9 rib fracture with tiny right-sided pneumothorax. COVID PCR results pending. Admission request was called for management for the rib fractures and tiny pneumothorax. 03/04: Patient was on 3 L/min of oxygen overnight, currently she is on room air. She tested positive for COVID-pneumonia. Chest x-ray this morning showing resolution of pneumothorax. She stated that when she is at rest, she does not have any right-sided chest pain. When she tried to move, she will have 6 out of 10 sharp constant right-sided chest wall pain. She denies any shortness of breath or wheezing; she is complaining of mild nonproductive cough. She denies any more fever, chills, or diaphoresis. Continue narcotics as needed for pain control for her right seventh and ninth rib fractures. Supplemental oxygen therapy as needed. No COVID-specific treatments because patient is not oxygen dependent at the moment. Pending physical therapy evaluation and treatment for placement planning. 03/05: Patient was on 2 L/min of oxygen at night while sleeping and right now is on room air. Suspect sleep apnea. Otherwise there was no other major overnight events. Patient is currently complaining of 7 out of 10 sharp right lateral chest wall pain. She denies any shortness of breath at the moment. She denies any cough or sputum productions. She denies any subjective fever, chills, or diaphoresis. Continue narcotics as needed for pain control for her right seventh and ninth rib fractures. Supplemental oxygen therapy as needed. Recommend outpatient sleep study to look for obstructive sleep apnea. No COVID-specific treatments because patient is not oxygen dependent at the moment. Pending physical therapy evaluation and treatment for placement planning. Tentative discharge date: Sunday03/07/22. 03/06: Patient is currently on 1 L/min of supplemental oxygen. She does not have any right lateral chest wall pain at the moment. She stated she will have muscle spasm pain when he coughed. She denies any shortness of breath at the moment. She denies any subjective fever, chills, or diaphoresis. Patient is felt well with physical therapist to the point that they did not think the patient need any home health services at time of discharge. Continue narcotics as needed for pain control for her right seventh and ninth rib fractures. Supplemental oxygen therapy as needed. Recommend outpatient sleep study to look for obstructive sleep apnea. No COVID-specific treatments because patient is only on the minimal amount of supplemental oxygen at the moment. Tentative discharge date: Sunday03/07/22. Constitutional Vitals: Vital Signs Temp Pulse Resp BP Pulse Ox O2 Del Method O2 Flow Rate 35.7 C L 58 L 16 149/60 93 1 03/06/22 12:00 03/06/22 12:00 03/06/22 12:00 03/06/22 12:00 03/06/22 12:00 03/06/22 12:00 03/06/22 12:00 Period Temp Pulse Resp BP Sys/Khalil Pulse Ox O2 Del Method O2 Flow Rate Last 24 Hr 35.6 C-35.8 C 56-68 16-18 121-149/57-69 88-95 Nasal Cannula- Room Air 1-2 Intake and Output 03/06/22 03/06/22 03/06/22 03:59 11:59 19:59 Intake Total 360 Output Total 600 1110 Balance -240 -1110 Intake & Output: Intake & Output 03/06/22 03/06/22 03/06/22 03:59 11:59 19:59 Intake Total 360 Output Total 600 1110 Balance -240 -1110 Intake: Oral 360 Output: Void Amount 600 1110 Other: Meal Breakfast Percent of Meal Consumed 100% Feeding Ability Independent Urine Appearance Clear Clear Urine Color Yellow Yellow Urine Odor Normal Normal Head Head exam: Present atraumatic and normal inspection Eye Eye exam: Present normal appearance ENT ENT exam: Present mucous membranes moist, normal exam and normal external ear exam Additional comments: Nasal cannula in place Neck Neck exam: Present normal inspection Respiratory Respiratory exam: Present normal respiratory exam and chest wall tenderness Cardiovascular Cardiovascular exam: Present normal rate and rhythm GI/Abdominal GI/Abdominal exam: Present normal bowel sounds Back Exam Back exam: Present normal inspection Neurological Exam Neurological exam: Present alert and oriented X3 Skin Skin exam: Present intact and warm OBJ DATA Labs CBC & Chem 7: 03/03/22 10:03 Meds: Medications Acetaminophen (Acetaminophen 325 Mg Tablet) 650 mg PO Q6HP PRN; Protocol PRN Reason: Per Pain Protocol/Fever > 101 Last Admin: 03/05/22 00:55 Dose: 650 mg Amlodipine Besylate (Amlodipine 5 Mg Tablet) 2.5 mg PO DAILY [facility] Last Admin: 03/06/22 08:35 Dose: 2.5 mg Ascorbic Acid (Ascorbic Acid 500 Mg Tablet) 500 mg PO DAILY [facility] Last Admin: 03/06/22 08:36 Dose: 500 mg Atenolol (Atenolol 50 Mg Tablet) 50 mg PO QHS [facility] Last Admin: 03/05/22 21:13 Dose: 50 mg Calcium Carbonate/Glycine (Calcium Carbonate 500 Mg Tab.Chew) 500 mg CHEWED DAILY [facility] Last Admin: 03/06/22 08:36 Dose: 500 mg Calcium/Vitamin D (Calcium W/Vit D3 500 Mg Tablet) 500 mg PO DAILY [facility] Last Admin: 03/06/22 08:36 Dose: 500 mg Cyanocobalamin (Cyanocobalamin (Vitamin B-12) 500 Mcg Tablet) 1,000 mcg PO DAILY [facility] Last Admin: 03/06/22 08:37 Dose: 1,000 mcg Docusate Sodium (Docusate Sodium 100 Mg Capsule) 100 mg PO BID [facility] Last Admin: 03/06/22 08:36 Dose: 100 mg Enoxaparin Sodium (Enoxaparin 40 Mg/0.4 Ml Syringe) 40 mg SQ DAILY [facility] Last Admin: 03/06/22 08:35 Dose: 40 mg Hydrochlorothiazide (Hydrochlorothiazide 12.5 Mg Capsule) 12.5 mg PO QDAY [facility] Last Admin: 03/06/22 08:37 Dose: 12.5 mg Hydromorphone HCl (Hydromorphone 0.5 Mg/0.5 Ml Syringe) 0.5 mg IV Q2HP PRN; Protocol PRN Reason: Per Pain Protocol Last Admin: 03/06/22 12:41 Dose: 0.5 mg Iron Carb/Multivit/[place]/Folic Acid (Multivit,Ther Iron,Ca,Fa & Min 1 Tablet) 1 tab PO DAILY [facility] Last Admin: 03/06/22 08:36 Dose: 1 tab Lactobacillus Rhamnosus (Lactobacillus 1 Capsule) 1 cap PO QDAY [facility] Last Admin: 03/06/22 08:35 Dose: 1 cap Magnesium Oxide (Magnesium Oxide 400 Mg Tablet) 400 mg PO DAILY [facility] Last Admin: 03/06/22 08:36 Dose: 400 mg Nortriptyline HCl (Nortriptyline 10 Mg Capsule) 10 mg PO QDAY [facility] Last Admin: 03/06/22 08:37 Dose: 10 mg Ondansetron HCl (Ondansetron 4 Mg/2 Ml Vial) 4 mg IV Q6HP PRN PRN Reason: Nausea And Vomiting Last Admin: 03/04/22 21:00 Dose: 4 mg Oxycodone HCl (Oxycodone Hcl 5 Mg Tablet) 5 mg PO Q4HP PRN; Protocol PRN Reason: Per Pain Protocol Last Admin: 03/06/22 03:39 Dose: 5 mg Psyllium Hydrophilic Mucilloid (Psyllium Husk 5.8 Gm Packet) 6 gm PO DAILYP PRN PRN Reason: Diarrhea Last Admin: 03/04/22 20:39 Dose: 6 gm Senna (Sennosides 1 Tablet) 2 tab PO [facility] Last Admin: 03/05/22 21:12 Dose: 2 tab Simvastatin (Simvastatin 10 Mg Tablet) 10 mg PO HS [facility] Last Admin: 03/05/22 21:12 Dose: 10 mg Sodium Chloride (0.9 % Sodium Chloride 10 Ml Syringe) 10 ml IV Q8 [facility] Last Admin: 03/06/22 05:27 Dose: Not Given Trazodone HCl (Trazodone Hcl 50 Mg Tablet) 25 mg PO HSP PRN PRN Reason: Insomnia Vitamin D (Vitamin D3 25 Mcg Tablet) 25 mcg PO DAILY [facility] Last Admin: 03/06/22 08:36 Dose: 25 mcg A/P Assessment and plan (1) CKD (chronic kidney disease) stage 2, GFR 60-89 ml/min: Status: Acute (2) Mixed hyperlipidemia: Status: Chronic (3) Hypertensive chronic kidney disease with stage 1 through stage 4 chronic ki dney disease, or unspecified chronic kidney disease: Status: Chronic Comment: Suspect this is prior renal dysfunction from nonsteroidal anti-inflammatories, 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 Right 7-9th ribs fracture with associated tiny right pneumothorax: Inpatient med surg General surgeon Dr. Ortiz consulted, recs. appreciated. No current plan for chest tube placement Repeat CXR 2 view showing resolution of the pneumothorax. Tylenol PRN mild pain Oxycodone PRN moderate pain Dilaudid IV PRN severe pain Incentive spirometry while awake Supplemental oxygen therapy Physical therapy evaluation and treatment Recommend outpatient sleep study to look for obstructive sleep apnea 2. Hypertension associated with chronic kidney disease II: Currently normotensive Avoid nephrotoxic agents Amlodipine Atenolol Hydrochlorothiazide 3. Mixed dyslipidemia: Continue statin therapy 4. Hypocalcemia: Calcium oral replacement GI ppx: not currently indicated DVT ppx: Lovenox Code status: DNR Prognosis: Stable Disposition: inpatient med surg; PT, tentative discharge date: Sunday03/07/22 Time Spent With Patient Time: Total time spent is greater than 50% in coordination of care (as documented) at patient's floor/unit and/or counseling patient: Total time spent with greater than 50% in coordination of care (as documented) at patient's floor/unit and/or counseling patient:: 25 - 35 minutes QUALITY VTE Deep Vein Thrombosis/Pulmonary Embolism Present on Admission: No
[2022-03-06] MEDS: ATENOLOL 50 MG TABLET PO SCH (20:36)
[2022-03-06] MEDS: SENNOSIDES 1 TABLET PO SCH (20:36)
[2022-03-06] MEDS: SIMVASTATIN 10 MG TABLET PO SCH (20:36)
[2022-03-07] MEDS: oxyCODONE HCL 5 MG TABLET PO PRN ×3 (00:35→14:18)
[2022-03-07] MEDS: 0.9 % SODIUM CHLORIDE 10 ML SYRINGE IV SCH ×3 (04:54→20:17)
[2022-03-07] MEDS: DOCUSATE SODIUM 100 MG CAPSULE PO SCH ×2 (08:30→20:18)
[2022-03-07] MEDS: CALCIUM W/VIT D3 500 MG TABLET PO SCH (08:30)
[2022-03-07] MEDS: ASCORBIC ACID 500 MG TABLET PO SCH (08:30)
[2022-03-07] MEDS: amLODIPine 5 MG TABLET PO SCH (08:30)
[2022-03-07] MEDS: CYANOCOBALAMIN (VITAMIN B-12) 500 MCG TABLET PO SCH (08:30)
[2022-03-07] MEDS: MAGNESIUM OXIDE 400 MG TABLET PO SCH (08:30)
[2022-03-07] MEDS: CALCIUM CARBONATE 500 MG TAB.CHEW CHEWED SCH (08:30)
[2022-03-07] MEDS: VITAMIN D3 25 MCG TABLET PO SCH (08:30)
[2022-03-07] MEDS: MULTIVIT,THER IRON,CA,FA & MIN 1 TABLET PO SCH (08:30)
[2022-03-07] MEDS: LACTOBACILLUS 1 CAPSULE PO SCH (08:30)
[2022-03-07] MEDS: HYDROCHLOROTHIAZIDE 12.5 MG CAPSULE PO SCH (08:31)
[2022-03-07] MEDS: ENOXAPARIN 40 MG/0.4 ML SYRINGE SQ SCH (08:31)
[2022-03-07] MEDS: NORTRIPTYLINE 10 MG CAPSULE PO SCH (08:31)
--- NOTE | 2022-03-07 10:41 | XRay Report ---
INDICATION: rib fracture, shortness of breath TECHNIQUE: AP portable semiupright chest x-ray COMPARISON: Previous chest x-rays dated 03/04/2022 and 03/03/2022. Previous chest CT scan dated 03/03/2022. FINDINGS: There are fractures of the right seventh and eighth ribs identified on present examination. There is no right pneumothorax or definite hemothorax. Mild right basilar infiltrate. This is a nonspecific appearance. Findings are most consistent with volume loss. Pulmonary contusion is possible. Pneumonia is also possible. Clinical correlation follow-up radiographs recommended. There is a suggestion of a right upper lobe nodule. No focal mass is identified on CT scan dated 03/03/2022. Focal density at the left lung base consistent with mild atelectasis. This is new since previous examination. Heart size and vascularity are unremarkable. There is no mediastinal widening. IMPRESSION: 1. Fractures of the right seventh and eighth ribs. No pneumothorax or detectable hemothorax 2. Right basilar parenchymal density most consistent with volume loss. Pulmonary contusion or pneumonia are possible. Clinical correlation follow-up radiographs recommended 3. Small left basilar density consistent with atelectasis Interpreted and Authenticated by: Angel Owusu 03/07/22
--- NOTE | 2022-03-07 11:22 | Internal Med Progress Note ---
SUBJECTIVE Subjective Patient information: Note initiated : 03/07/22 at 11:18 am Service Date, if different from initiated Date: [] Patient: Eli Welch a 77 y/o F admitted on 03/03/22 for Rib pain. Chief Complaint: [] Interval history: Ms. Welch is a 77 year old F history of CKD, hyperlipidemia, hypertensions, presenting with mechanical fall with resultant right lateral chest wall pain. There was no previous history of fall. Patient started to experience coughing and chills for the past 90 so she performed a COVID swab yesterday which was negative and she performed another swab today with equivocal result. She did had a medical for after losing her balance in the bathroom earlier today and she landed on her right lateral chest wall. She is now complaining of 5 out of 10, sharp, constant right lateral chest wall exacerbated with coughing or deep breath. She denies any shortness of breath at the moment. CT of the chest showing right 17/9 rib fracture with tiny right-sided pneumothorax. COVID PCR results pending. Admission request was called for management for the rib fractures and tiny pneumothorax. 03/04: Patient was on 3 L/min of oxygen overnight, currently she is on room air. She tested positive for COVID-pneumonia. Chest x-ray this morning showing resolution of pneumothorax. She stated that when she is at rest, she does not have any right-sided chest pain. When she tried to move, she will have 6 out of 10 sharp constant right-sided chest wall pain. She denies any shortness of breath or wheezing; she is complaining of mild nonproductive cough. She denies any more fever, chills, or diaphoresis. Continue narcotics as needed for pain control for her right seventh and ninth rib fractures. Supplemental oxygen therapy as needed. No COVID-specific treatments because patient is not oxygen dependent at the moment. Pending physical therapy evaluation and treatment for placement planning. 03/05: Patient was on 2 L/min of oxygen at night while sleeping and right now is on room air. Suspect sleep apnea. Otherwise there was no other major overnight events. Patient is currently complaining of 7 out of 10 sharp right lateral chest wall pain. She denies any shortness of breath at the moment. She denies any cough or sputum productions. She denies any subjective fever, chills, or diaphoresis. Continue narcotics as needed for pain control for her right seventh and ninth rib fractures. Supplemental oxygen therapy as needed. Recommend outpatient sleep study to look for obstructive sleep apnea. No COVID-specific treatments because patient is not oxygen dependent at the moment. Pending physical therapy evaluation and treatment for placement planning. Tentative discharge date: Sunday03/07/22. 03/06: Patient is currently on 1 L/min of supplemental oxygen. She does not have any right lateral chest wall pain at the moment. She stated she will have muscle spasm pain when he coughed. She denies any shortness of breath at the moment. She denies any subjective fever, chills, or diaphoresis. Patient is felt well with physical therapist to the point that they did not think the patient need any home health services at time of discharge. Continue narcotics as needed for pain control for her right seventh and ninth rib fractures. Supplemental oxygen therapy as needed. Recommend outpatient sleep study to look for obstructive sleep apnea. No COVID-specific treatments because patient is only on the minimal amount of supplemental oxygen at the moment. Tentative discharge date: Sunday03/07/22. 03/07: Patient is currently on 3 L/min of supplemental oxygen. She is complaining of moderate sharp right lateral chest wall pain. She denies any shortness of breath. She denies any cough or wheezing. She denies any subjective fever, chills, or diaphoresis. Repeat chest x-ray this morning showing again the rib fractures and atelectasis without other complications suggest pneumothorax or hemothorax. We will keep the patient in-house today while trying to wean her off the oxygen. We will continue to provide narcotics as needed for pain control for her rib fractures. Continue to encourage patient to use incentive spirometry. Tentative discharge date: Sunday03/08/22. Constitutional Vitals: Vital Signs Temp Pulse Resp BP Pulse Ox O2 Del Method O2 Flow Rate 35.6 C L 64 19 163/72 94 3 03/07/22 07:40 03/07/22 07:40 03/07/22 07:40 03/07/22 07:40 03/07/22 07:40 03/07/22 07:40 03/07/22 07:40 Period Temp Pulse Resp BP Sys/Khalil Pulse Ox O2 Del Method O2 Flow Rate Last 24 Hr 35.6 C-36.2 C 58-69 16-20 133-163/60-101 90-97 Nasal Cannula- Nasal Cannula 1-3 Intake and Output 03/06/22 03/07/22 03/07/22 19:59 03:59 11:59 Intake Total 500 Output Total 1909 750 Balance -1909750 500 Weight 89.947 kg Intake & Output: Intake & Output 03/06/22 03/07/22 03/07/22 19:59 03:59 11:59 Intake Total 500 Output Total 191 750 Balance -1909750 500 Weight 89.947 kg Intake: Oral 500 Output: Void Amount 1909 750 Other: Meal Lunch Percent of Meal Consumed 100% Feeding Ability Independent Urine Appearance Clear Clear Urine Color Yellow Bright Yellow Urine Odor Normal Normal Head Head exam: Present atraumatic and normal inspection Eye Eye exam: Present normal appearance ENT ENT exam: Present mucous membranes moist, normal exam and normal external ear exam Additional comments: Nasal cannula in place Neck Neck exam: Present normal inspection Respiratory Respiratory exam: Present normal respiratory exam and chest wall tenderness Cardiovascular Cardiovascular exam: Present normal rate and rhythm GI/Abdominal GI/Abdominal exam: Present normal bowel sounds Back Exam Back exam: Present normal inspection Neurological Exam Neurological exam: Present alert and oriented X3 Skin Skin exam: Present intact and warm OBJ DATA Labs CBC & Chem 7: 03/03/22 10:03 Meds: Medications Acetaminophen (Acetaminophen 325 Mg Tablet) 650 mg PO Q6HP PRN; Protocol PRN Reason: Per Pain Protocol/Fever > 101 Last Admin: 03/05/22 00:55 Dose: 650 mg Amlodipine Besylate (Amlodipine 5 Mg Tablet) 2.5 mg PO DAILY [facility] Last Admin: 03/07/22 08:30 Dose: 2.5 mg Ascorbic Acid (Ascorbic Acid 500 Mg Tablet) 500 mg PO DAILY [facility] Last Admin: 03/07/22 08:30 Dose: 500 mg Atenolol (Atenolol 50 Mg Tablet) 50 mg PO QHS [facility] Last Admin: 03/06/22 20:36 Dose: 50 mg Calcium Carbonate/Glycine (Calcium Carbonate 500 Mg Tab.Chew) 500 mg CHEWED DAILY [facility] Last Admin: 03/07/22 08:30 Dose: 500 mg Calcium/Vitamin D (Calcium W/Vit D3 500 Mg Tablet) 500 mg PO DAILY [facility] Last Admin: 03/07/22 08:30 Dose: 500 mg Cyanocobalamin (Cyanocobalamin (Vitamin B-12) 500 Mcg Tablet) 1,000 mcg PO DAILY [facility] Last Admin: 03/07/22 08:30 Dose: 1,000 mcg Docusate Sodium (Docusate Sodium 100 Mg Capsule) 100 mg PO BID [facility] Last Admin: 03/07/22 08:30 Dose: 100 mg Enoxaparin Sodium (Enoxaparin 40 Mg/0.4 Ml Syringe) 40 mg SQ DAILY [facility] Last Admin: 03/07/22 08:31 Dose: 40 mg Hydrochlorothiazide (Hydrochlorothiazide 12.5 Mg Capsule) 12.5 mg PO QDAY [facility] Last Admin: 03/07/22 08:31 Dose: 12.5 mg Hydromorphone HCl (Hydromorphone 0.5 Mg/0.5 Ml Syringe) 0.5 mg IV Q2HP PRN; Protocol PRN Reason: Per Pain Protocol Last Admin: 03/06/22 17:07 Dose: 0.5 mg Iron Carb/Multivit/[place]/Folic Acid (Multivit,Ther Iron,Ca,Fa & Min 1 Tablet) 1 tab PO DAILY [facility] Last Admin: 03/07/22 08:30 Dose: 1 tab Lactobacillus Rhamnosus (Lactobacillus 1 Capsule) 1 cap PO QDAY [facility] Last Admin: 03/07/22 08:30 Dose: 1 cap Magnesium Oxide (Magnesium Oxide 400 Mg Tablet) 400 mg PO DAILY [facility] Last Admin: 03/07/22 08:30 Dose: 400 mg Nortriptyline HCl (Nortriptyline 10 Mg Capsule) 10 mg PO QDAY [facility] Last Admin: 03/07/22 08:31 Dose: 10 mg Ondansetron HCl (Ondansetron 4 Mg/2 Ml Vial) 4 mg IV Q6HP PRN PRN Reason: Nausea And Vomiting Last Admin: 03/04/22 21:00 Dose: 4 mg Oxycodone HCl (Oxycodone Hcl 5 Mg Tablet) 5 mg PO Q4HP PRN; Protocol PRN Reason: Per Pain Protocol Last Admin: 03/07/22 04:53 Dose: 5 mg Psyllium Hydrophilic Mucilloid (Psyllium Husk 5.8 Gm Packet) 6 gm PO DAILYP PRN PRN Reason: Diarrhea Last Admin: 03/04/22 20:39 Dose: 6 gm Senna (Sennosides 1 Tablet) 2 tab PO HS [facility] Last Admin: 03/06/22 20:36 Dose: 2 tab Simvastatin (Simvastatin 10 Mg Tablet) 10 mg PO HS [facility] Last Admin: 03/06/22 20:36 Dose: 10 mg Sodium Chloride (0.9 % Sodium Chloride 10 Ml Syringe) 10 ml IV Q8 [facility] Last Admin: 03/07/22 04:54 Dose: 10 ml Trazodone HCl (Trazodone Hcl 50 Mg Tablet) 25 mg PO HSP PRN PRN Reason: Insomnia Vitamin D (Vitamin D3 25 Mcg Tablet) 25 mcg PO DAILY [facility] Last Admin: 03/07/22 08:30 Dose: 25 mcg A/P Assessment and plan (1) CKD (chronic kidney disease) stage 2, GFR 60-89 ml/min: Status: Acute (2) Mixed hyperlipidemia: Status: Chronic (3) Hypertensive chronic kidney disease with stage 1 through stage 4 chronic kidney disease, or unspecified chronic kidney disease: Status: Chronic Comment: Suspect this is prior renal dysfunction from nonsteroidal anti-inflammatories, 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 Right 7-9th ribs fracture with associated tiny right pneumothorax: Inpatient med surg General surgeon Dr. Ortiz consulted, recs. appreciated. No current plan for chest tube placement Repeat CXR on 03/07/22 again showing the rib fractures and atelectasis without other complications suggest pneumothorax or hemothorax. Tylenol PRN mild pain Oxycodone PRN moderate pain Dilaudid IV PRN severe pain Incentive spirometry while awake Supplemental oxygen therapy Physical therapy evaluation and treatment Recommend outpatient sleep study to look for obstructive sleep apnea 2. Hypertension associated with chronic kidney disease II: Currently normotensive Avoid nephrotoxic agents Amlodipine Atenolol Hydrochlorothiazide 3. Mixed dyslipidemia: Continue statin therapy 4. Hypocalcemia: Calcium oral replacement GI ppx: not currently indicated DVT ppx: Lovenox Code status: DNR Prognosis: Guarded Disposition: inpatient med surg; PT, tentative discharge date: Sunday03/08/22 Time Spent With Patient Time: Total time spent is greater than 50% in coordination of care (as documented) at patient's floor/unit and/or counseling patient: Total time spent with greater than 50% in coordination of care (as documented) at patient's floor/unit and/or counseling patient:: 25 - 35 minutes QUALITY VTE Deep Vein Thrombosis/Pulmonary Embolism Present on Admission: No
[2022-03-07] MEDS: ACETAMINOPHEN 325 MG TABLET PO PRN ×2 (14:16→20:18)
[2022-03-07] MEDS: SENNOSIDES 1 TABLET PO SCH (20:17)
[2022-03-07] MEDS: ATENOLOL 50 MG TABLET PO SCH (20:18)
[2022-03-07] MEDS: SIMVASTATIN 10 MG TABLET PO SCH (20:18)
[2022-03-08] MEDS: ACETAMINOPHEN 325 MG TABLET PO PRN ×2 (02:16→08:40)
[2022-03-08] MEDS: 0.9 % SODIUM CHLORIDE 10 ML SYRINGE IV SCH (05:28)
[2022-03-08] MEDS: HYDROCHLOROTHIAZIDE 12.5 MG CAPSULE PO SCH (08:39)
[2022-03-08] MEDS: ASCORBIC ACID 500 MG TABLET PO SCH (08:39)
[2022-03-08] MEDS: NORTRIPTYLINE 10 MG CAPSULE PO SCH (08:39)
[2022-03-08] MEDS: DOCUSATE SODIUM 100 MG CAPSULE PO SCH (08:39)
[2022-03-08] MEDS: MAGNESIUM OXIDE 400 MG TABLET PO SCH (08:39)
[2022-03-08] MEDS: amLODIPine 5 MG TABLET PO SCH (08:40)
[2022-03-08] MEDS: CYANOCOBALAMIN (VITAMIN B-12) 500 MCG TABLET PO SCH (08:40)
[2022-03-08] MEDS: MULTIVIT,THER IRON,CA,FA & MIN 1 TABLET PO SCH (08:40)
[2022-03-08] MEDS: CALCIUM W/VIT D3 500 MG TABLET PO SCH (08:40)
[2022-03-08] MEDS: VITAMIN D3 25 MCG TABLET PO SCH (08:40)
[2022-03-08] MEDS: CALCIUM CARBONATE 500 MG TAB.CHEW CHEWED SCH (08:40)
[2022-03-08] MEDS: LACTOBACILLUS 1 CAPSULE PO SCH (08:40)
[2022-03-08] MEDS: ENOXAPARIN 40 MG/0.4 ML SYRINGE SQ SCH (08:41)
--- NOTE | 2022-03-08 10:29 | Discharge Summary ---
Discharge Provider Provider IMPORTANT FOLLOW-UP INFORMATION FOR PCP: Patient information: Note initiated : 03/08/22 at 10:27 am Service Date, if different from initiated Date: [] Patient: Eli Welch 77 y/o F admitted on 03/03/22 for Rib pain. Chief Complaint: [] Date of admission: 03/03/22 14:51 Discharge date: 03/08/22 Primary care physician: Shira Lee Attending physician on admission: Kristian Blanca Consults: 03/03/22 Consult to Physician [CONS] Stat Comment: Consulting Provider: Kristian Blanca Reason For Exam: Physician to Consult Consult to Physician [CONS] Stat Comment: Consulting Provider: Edie Ortiz Reason For Exam: Physician to Consult Attending physician on discharge: Kristian Blanca COURSE Hospital Course Hospital course: Ms. Welch is a 77 year old F history of CKD, hyperlipidemia, hypertensions, presenting with mechanical fall with resultant right lateral chest wall pain. There was no previous history of fall. Patient started to experience coughing and chills for the past 90 so she performed a COVID swab yesterday which was negative and she performed another swab today with equivocal result. She did had a medical for after losing her balance in the bathroom earlier today and she landed on her right lateral chest wall. She is now complaining of 5 out of 10, sharp, constant right lateral chest wall exacerbated with coughing or deep breath. She denies any shortness of breath at the moment. CT of the chest showing right 17/9 rib fracture with tiny right-sided pneumothorax. COVID PCR results pending. Admission request was called for management for the rib fractures and tiny pneumothorax. 03/04: Patient was on 3 L/min of oxygen overnight, currently she is on room air. She tested positive for COVID-pneumonia. Chest x-ray this morning showing resolution of pneumothorax. She stated that when she is at rest, she does not have any right-sided chest pain. When she tried to move, she will have 6 out of 10 sharp constant right-sided chest wall pain. She denies any shortness of breath or wheezing; she is complaining of mild nonproductive cough. She denies any more fever, chills, or diaphoresis. Continue narcotics as needed for pain control for her right seventh and ninth rib fractures. Supplemental oxygen therapy as needed. No COVID-specific treatments because patient is not oxygen dependent at the moment. Pending physical therapy evaluation and treatment for placement planning. 03/05: Patient was on 2 L/min of oxygen at night while sleeping and right now is on room air. Suspect sleep apnea. Otherwise there was no other major overnight events. Patient is currently complaining of 7 out of 10 sharp right lateral chest wall pain. She denies any shortness of breath at the moment. She denies any cough or sputum productions. She denies any subjective fever, chills, or diaphoresis. Continue narcotics as needed for pain control for her right seventh and ninth rib fractures. Supplemental oxygen therapy as needed. Recommend outpatient sleep study to look for obstructive sleep apnea. No COVID-specific treatments because patient is not oxygen dependent at the moment. Pending physical therapy evaluation and treatment for placement planning. Tentative discharge date: Sunday03/07/22. 03/06: Patient is currently on 1 L/min of supplemental oxygen. She does not have any right lateral chest wall pain at the moment. She stated she will have muscle spasm pain when he coughed. She denies any shortness of breath at the moment. She denies any subjective fever, chills, or diaphoresis. Patient is felt well with physical therapist to the point that they did not think the patient need any home health services at time of discharge. Continue narcotics as needed for pain control for her right seventh and ninth rib fractures. Supplemental oxygen therapy as needed. Recommend outpatient sleep study to look for obstructive sleep apnea. No COVID-specific treatments because patient is only on the minimal amount of supplemental oxygen at the moment. Tentative discharge date: Sunday03/07/22. 03/07: Patient is currently on 3 L/min of supplemental oxygen. She is complaining of moderate sharp right lateral chest wall pain. She denies any shortness of breath. She denies any cough or wheezing. She denies any subjective fever, chills, or diaphoresis. Repeat chest x-ray this morning showing again the rib fractures and atelectasis without other complications suggest pneumothorax or hemothorax. We will keep the patient in-house today while trying to wean her off the oxygen. We will continue to provide narcotics as needed for pain control for her rib fractures. Continue to encourage patient to use incentive spirometry. Tentative discharge date: Sunday03/08/22. 03/08: Discharged. Discharge diagnosis: Right 7-9th rib fracture; CoVID pneumonia Time Spent with Patient Time attestation: Total time spent providing and/or coordinating discharge services: Time spent: Less than 30 minutes EXAM Constitutional Vitals: Temp Pulse Resp BP Pulse Ox O2 Del Method O2 Flow Rate 36.2 C 62 18 152/65 96 1.5 03/08/22 07:32 03/08/22 07:32 03/08/22 07:32 03/08/22 07:32 03/08/22 08:17 03/08/22 08:17 03/08/22 08:17 General appearance: cooperative and no acute distress Head Head exam: Present atraumatic and normocephalic Eye Eye exam: Present EOMI and PERRL ENT ENT exam: Present mucous membranes moist, normal exam and normal external ear exam Neck Neck exam: Present normal inspection; Absent lymphadenopathy, tenderness or thyromegaly Respiratory Respiratory exam: Present chest wall tenderness; Absent accessory muscle use, respiratory distress or wheezes Cardiovascular Cardiovascular exam: Present normal rate and rhythm; Absent JVD GI/Abdominal GI/Abdominal exam: Present normal bowel sounds and soft; Absent organomegaly or tenderness Extremities Exam Extremities exam: Present full ROM, normal capillary refill and normal inspection; Absent tenderness Neurological Exam Neurological exam: Present alert, CN II-XII intact and oriented X3; Absent motor sensory deficit Psychiatric Psychiatric exam: Present normal affect and normal mood; Absent anxious or depressed Skin Skin exam: Present dry and intact Discharge Plan Patient/Caregiver Discharge Instructions Activity: increase activity as tolerated Diet: Regular Diet Prescriptions: New oxycodone 5 mg Tablet 5 mg PO Q6 Qty: 20 0RF Continued atenolol 50 mg tablet 50 mg PO QHS Qty: 90 2RF magnesium oxide 400 mg capsule 400 mg PO QDAY coQ10 (ubiquinol) 100 mg capsule 100 mg PO QDAY B.animalis,bifid,infantis,long [Probiotic 4X] 10-15 mg tablet,delayed release (DR/EC) 1 tab PO QDAY pravastatin 40 mg tablet 20 mg PO QHS calcium carbonate-vitamin D3 [Calcium 500 + D] 500 mg(1,250mg) -400 unit tablet,chewable 1 tab PO QDAY multivitamin,xr-wizv-sdsdxwgs [Complete Multivitamin] tablet 1 tab PO BID Rx Instructions: gummies psyllium seed (sugar) [Metamucil (sugar)] powder 1 tbsp PO QDAY PRN (Reason: Diarrhea) cyanocobalamin (vitamin B-12) See Rx Instructions PO QDAY Label Comments: 1000mcg PO QDAY; Rx Instructions: 1000mcg PO QDAY; hydrochlorothiazide 12.5 mg capsule 12.5 mg PO QDAY docusate sodium 100 mg capsule 100 mg PO QDAY cholecalciferol (vitamin D3) 25 mcg (1,000 unit) capsule 1,000 unit PO QDAY nortriptyline 10 mg capsule 10 mg PO QDAY ascorbic acid (vitamin C) 250 mg tablet,chewable 500 mg PO QDAY cranberry extract 425 mg capsule 425 mg PO QDAY Rx Instructions: administer with a meal Airborne (ascorbic acid) 250-8.875 mg tablet,chewable 2 tab PO QDAY Astaxanthin- Vit E [place] Bioastin 12 mg PO QDAY amlodipine 2.5 mg tablet 2.5 mg PO QDAY Qty: 90 3RF Follow Up Plan Follow up with: PCP, PCP [Other] Shira Lee ARNP [Primary Care Provider] - Patient Disposition: Home, Self-Care Rehab Potential: Good I certify that the patient requires SNF services: No Overall status at discharge: patient is progressing back to baseline Discharge Orders: Discharge Order (Routine); Ordered 03/08/22 Ordered By: Kristian LEUNG VTE Deep Vein Thrombosis/Pulmonary Embolism Present on Admission: No
== END 2022-03-08 11:50 | disposition home or self-care (01) | DRG 199 ==
LOC: ED 09:27 → MEDSUR 14:51
PROVIDERS: ADMIT Internal Medicine; ATTEND Internal Medicine